=== PATIENT | male | born 1965 | race Caucasian/White ===

== ENCOUNTER 2024-06-26 09:53 | Outpatient (RCR) | payer OTHER, SELFPAY | END 2024-06-29 23:59 | disposition home or self-care (01) | LOC: SWHD 09:53 | PROVIDERS: PCP Registered Nurse; Referring Provider Registered Nurse; Visit Provider Student in an Organized Health Care Education/Training Program | DX: I96 Gangrene, not elsewhere classified (principal); E11.621 Type 2 diabetes mellitus with foot ulcer; L97.512 Non-pressure chronic ulcer of other part of right foot with fat layer exposed; E11.40 Type 2 diabetes mellitus with diabetic neuropathy, unspecified; Z79.84 Long term (current) use of oral hypoglycemic drugs; D64.9 Anemia, unspecified | CPT/HCPCS: 82962; 99213; A9270; G0277; G0463 ==

== ENCOUNTER → 2024-07-01 | Outpatient (CLI) | payer OTHER, SELFPAY | END | disposition home or self-care (01) | LOC: SLDO 12:15 | PROVIDERS: Referring Provider Student in an Organized Health Care Education/Training Program; Visit Provider Student in an Organized Health Care Education/Training Program | DX: E11.621 Type 2 diabetes mellitus with foot ulcer (principal); L97.515 Non-pressure chronic ulcer of other part of right foot with muscle involvement without evidence of necrosis | CPT/HCPCS: 87070; 87075; 87077; 87186; 87205 ==

== ENCOUNTER → 2024-07-17 | Outpatient (CLI) | payer OTHER, SELFPAY | END | disposition home or self-care (01) | LOC: SWHD 11:49 | PROVIDERS: PCP Registered Nurse; Referring Provider Registered Nurse; Visit Provider Student in an Organized Health Care Education/Training Program | DX: I96 Gangrene, not elsewhere classified (principal); E11.621 Type 2 diabetes mellitus with foot ulcer; L97.512 Non-pressure chronic ulcer of other part of right foot with fat layer exposed; E11.40 Type 2 diabetes mellitus with diabetic neuropathy, unspecified; Z79.84 Long term (current) use of oral hypoglycemic drugs; D64.9 Anemia, unspecified | CPT/HCPCS: 82962; A9270; G0277 ==

== ENCOUNTER → 2024-07-25 | Outpatient (CLI) | payer OTHER, SELFPAY | END | disposition home or self-care (01) | LOC: CDIM 11:57 | PROVIDERS: PCP Registered Nurse; Referring Provider Student in an Organized Health Care Education/Training Program; Visit Provider Student in an Organized Health Care Education/Training Program | DX: E11.621 Type 2 diabetes mellitus with foot ulcer (principal) ==

== ENCOUNTER 2024-07-30 08:43 | Outpatient (RCR) | payer OTHER, SELFPAY ==
--- NOTE | 2024-07-25 12:27 | XR_ITS ---
Examination: Foot, right, 3 views Technique: AP, oblique, lateral views foot, 3 views Date and time of exam: July 25, 2024 1252 hours Comparison May 21, 2024 INDICATIONS: Nonhealing ulcer lateral side of the foot 4 months FINDINGS: Prominent bone destruction distal fifth metatarsal and proximal phalanx fifth digit Severe osteopenia No fracture IMPRESSION: Prominent osteomyelitis distal fifth metatarsal and proximal phalanx fifth digit, consider MRI foot without contrast follow-up
== END 2024-07-30 23:59 | disposition home or self-care (01) ==
LOC: SWHD 08:43
PROVIDERS: PCP Registered Nurse; Referring Provider Registered Nurse; Visit Provider Student in an Organized Health Care Education/Training Program
DX: E11.621 Type 2 diabetes mellitus with foot ulcer (principal); L97.512 Non-pressure chronic ulcer of other part of right foot with fat layer exposed; E11.40 Type 2 diabetes mellitus with diabetic neuropathy, unspecified; Z79.84 Long term (current) use of oral hypoglycemic drugs; D64.9 Anemia, unspecified
CPT/HCPCS: 97597; 17250; 73630; 82962; 99213; A9270; G0277; G0463

== ENCOUNTER → 2024-07-30 | Outpatient (CLI) | payer OTHER, SELFPAY ==
[2024-07-30 13:08] LABS: Basophils # (Auto) 0.1 Thou/mm3 (0.0-0.2); Basophils % (Auto) 1 % (0-2.5); Eosinophils # (Auto) 0.5 Thou/mm3 (0.0-0.5); Eosinophils % (Auto) 9 % (0-10); Hematocrit 38.5 % (41.0-53.0); Immature Granulocytes % (Auto) 0 % (0-0); Immature Granulocytes Auto 0.02 Thou/mm3 (0.00-0.00); Lymphocytes # (Auto) 1.4 Thou/mm3 (1.0-4.8); Lymphocytes % (Auto) 24 % (10-50); Mean Corpuscular HGB Conc 33.8 g/dl (31.0-37.0); Mean Corpuscular Hemoglobin 31.9 pg (25.0-35.0); Mean Corpuscular Volume 94 fL (80-100); Monocytes # (Auto) 0.6 Thou/mm3 (0.0-0.8); Monocytes % (Auto) 10 % (0-12); Neutrophils # (Auto) 3.2 Thou/mm3 (1.8-7.7); Neutrophils % (Auto) 55 % (37-80); Nucleated Red Blood Cell % 0 /100 WBC (0); Platelet Count 221 Thou/mm3 (140-440); RDW Standard Deviation 44.4 fL (35.1-43.9); Red Blood Count 4.08 Miln/mm3 (4.50-5.90); White Blood Count 5.7 Thou/mm3 (3.8-10.6)
[2024-07-30 13:19] LABS: Glucose Estimated Average 120 mg/dL (80-131); Hemoglobin A1C 5.8 % Hgb (4.8-6.0)
[2024-07-30 13:20] LABS: Alanine Aminotransferase 27 U/L (10-49); Albumin, Serum 4.3 gm/dL (3.5-5.0); Albumin/Globulin Ratio 1.7 (1.2-2.2); Alkaline Phosphatase 68 U/L (46-116); Anion Gap 7 (7-16); Aspartate Amino Transferase 22 U/L (0-34); BUN/Creatinine Ratio 14 Ratio (12-20); Bilirubin,Total 0.5 mg/dL (0.3-1.2); Blood Urea Nitrogen 14 mg/dL (9-23); Calcium 9.6 mg/dL (8.3-10.6); Calcium (Corrected) 9.6 mg/dL (8.5-10.1); Chloride 101 mMol/L (98-107); Globulin 2.5 gm/dL (2.3-3.5); Glucose 128 mg/dL (74-106); Osmolality,Calculated 276 (275-295); Potassium 4.4 mMol/L (3.4-5.1); Sodium 137 mMol/L (136-145); Total Protein 6.8 gm/dL (5.7-8.2); eGFR > 60 See Note
== END | disposition home or self-care (01) ==
LOC: COPL 12:05
PROVIDERS: PCP Family Medicine; Referring Provider Registered Nurse; Visit Provider Registered Nurse
DX: E11.65 Type 2 diabetes mellitus with hyperglycemia (principal); D64.9 Anemia, unspecified
CPT/HCPCS: 36415; 80053; 83036; 85025

== ENCOUNTER 2024-08-14 10:41 | Inpatient (IN) | payer OTHER, SELFPAY ==
[2024-08-14] VITALS (7 sets, daily range): BP systolic 123–220; BP diastolic 68–93; PULSE 101–117; RESP 16–22; TEMP 36.6–37.1; O2SAT 99–100; BMI 25.8; BMI 25.9
--- NOTE | 2024-08-14 10:52 | XR_ITS ---
Examination: Foot, right, 3 views Technique: AP, oblique, lateral views foot, 3 views Date and time of exam: August 14, 2024 1101 hours INDICATIONS: Nonhealing wound right foot today FINDINGS: Gross bone destruction distal fifth metatarsal and almost the entire proximal phalanx fifth digit Clinical correlation distal third metatarsal No fracture IMPRESSION: Prominent osteomyelitis distal fifth metatarsal and proximal phalanx fifth digit Recommend MRI foot without contrast follow-up
--- NOTE | 2024-08-14 10:52 | PD.EDRME ---
Rapid Medical Screening Exam RME Arrival date/time: 08/14/24 10:41 59-year-old male presents emergency department today with infection of right foot patient reports being diabetic and followed at wound care since April Chief Complaint: Ankle/Foot Injury Vital signs: Vital Signs Temperature 98.1 F 08/14/24 10:50 Pulse Rate 117 H 08/14/24 10:50 Respiratory Rate 18 08/14/24 10:50 Blood Pressure 123/70 08/14/24 10:50 Pulse Oximetry (%) 100 08/14/24 10:50 Oxygen Delivery Method Room Air 08/14/24 10:50
[2024-08-14 11:50] LABS: Lactate (Lactic Acid) 1.1 mMol/L (0.4-2.0)
[2024-08-14 11:53] LABS: Basophils # (Auto) 0.1 Thou/mm3 (0.0-0.2); Basophils % (Auto) 1 % (0-2.5); Eosinophils # (Auto) 0.2 Thou/mm3 (0.0-0.5); Eosinophils % (Auto) 3 % (0-10); Hematocrit 37.7 % (41.0-53.0); Immature Granulocytes % (Auto) 0 % (0-0); Immature Granulocytes Auto 0.03 Thou/mm3 (0.00-0.00); Lymphocytes # (Auto) 1.1 Thou/mm3 (1.0-4.8); Lymphocytes % (Auto) 12 % (10-50); Mean Corpuscular HGB Conc 34.5 g/dl (31.0-37.0); Mean Corpuscular Hemoglobin 31.9 pg (25.0-35.0); Mean Corpuscular Volume 92 fL (80-100); Monocytes # (Auto) 1.1 Thou/mm3 (0.0-0.8); Monocytes % (Auto) 12 % (0-12); Neutrophils # (Auto) 6.6 Thou/mm3 (1.8-7.7); Neutrophils % (Auto) 72 % (37-80); Nucleated Red Blood Cell % 0 /100 WBC (0); Platelet Count 209 Thou/mm3 (140-440); RDW Standard Deviation 44.2 fL (35.1-43.9); Red Blood Count 4.08 Miln/mm3 (4.50-5.90); White Blood Count 9.2 Thou/mm3 (3.8-10.6)
[2024-08-14 12:05] LABS: Partial Thromboplastin Time 27.3 Seconds (22.0-36.0); Prothrombin Time 11.4 Seconds (9.0-12.2)
[2024-08-14 12:06] LABS: Sed Rate (ESR) 5 mm/hr (0-20)
[2024-08-14 12:16] LABS: Alanine Aminotransferase 47 U/L (10-49); Albumin, Serum 4.5 gm/dL (3.5-5.0); Albumin/Globulin Ratio 1.7 (1.2-2.2); Alkaline Phosphatase 58 U/L (46-116); Anion Gap 9 (7-16); Aspartate Amino Transferase 29 U/L (0-34); BUN/Creatinine Ratio 14 Ratio (12-20); Bilirubin,Total 0.8 mg/dL (0.3-1.2); Blood Urea Nitrogen 13 mg/dL (9-23); C-Reactive Protein 1.8 mg/dL (0.0-0.9); Calcium 9.6 mg/dL (8.3-10.6); Calcium (Corrected) 9.6 mg/dL (8.5-10.1); Carbon Dioxide 28.5 mMol/L (20.0-31.0); Chloride 98 mMol/L (98-107); Creatinine (Component) 0.9 mg/dL (0.6-1.3); Estimated Creatinine Clearance 93.5 mL/min (>60); Globulin 2.7 gm/dL (2.3-3.5); Glucose 127 mg/dL (74-106); Osmolality,Calculated 272 (275-295); Potassium 4.2 mMol/L (3.4-5.1); Procalcitonin 0.09 ng/ml (0.0-0.49); Sodium 135 mMol/L (136-145); Total Protein 7.2 gm/dL (5.7-8.2); eGFR > 60 See Note
--- NOTE | 2024-08-14 14:11 | EDNOTE_ITS ---
<Statement entered by Gardenia Hilliard MD - 08/14/24 16:17> As co-signing physician, I was present and available for consult prn. I concur with the plan and care as documented by the midlevel provider. Lower Extremity Injury RME/HPI General Chief Complaint: Ankle/Foot Injury Stated Complaint: RIGHT FOOT DIABETIC ULCER; WOUND CLINIC SENT Time Seen by Provider: 08/14/24 12:46 Arrival date/time: 08/14/24 10:41 RME / HPI RME / HPI Narrative: 59-year-old male presents emergency department today with infection of right foot patient reports being diabetic and followed at wound care since April. Patient noticed today that the chronic wound is getting worse, with redness and swelling, and puslike drainage. No fever noted. Was sent to us by wound care nurse. Currently taking Bactrim for 2 weeks now. Related Data Home Medications ?Medication ?Instructions ?Recorded ?Confirmed metformin 1,000 mg tablet 500 mg PO BID 11/16/22 06/13/23 metoprolol succinate 50 mg 50 mg PO QDAY 11/16/22 06/13/23 tablet,extended release 24 hr aspirin 81 mg tablet,delayed 81 mg PO QDAY 06/13/23 06/13/23 release gabapentin 300 mg capsule 300 mg PO BID 06/13/23 06/13/23 rosuvastatin 10 mg tablet 10 mg PO QDAY 06/13/23 06/13/23 semaglutide 1 mg/dose (4 mg/3 mL) 1 mg subcut QWEEK 06/13/23 06/13/23 subcutaneous pen injector (Ozempic) ticagrelor 90 mg tablet (Brilinta) 90 mg PO BID 06/13/23 06/13/23 Allergies Allergy/AdvReac Type Severity Reaction Status Date / Time codeine Allergy Mild Nausea Verified 08/14/24 10:42 Review of Systems Review of Systems Narrative Review of Systems: Review of system reviewed and within normal limits except mentioned in HPI ED Exam Narrative Physical exam: VITAL SIGNS: Reviewed. GENERAL APPEARANCE: Alert and interactive, follows commands, no acute distress, HEAD AND FACE: Non-traumatic. ENT: PERRL, pink conjunctivitis, eyelid no trauma, Mucous membrane moist. NECK: Supple, nontender, no nuchal rigidity. CHEST: No tenderness, no crepitus, no paradoxical movement, no retractions. LUNGS: Clear, well ventilated, symmetric, no rales, no wheezing, no ronchi, no stridor, good breath sounds bilaterally. HEART: Regular rate, regular rhythm, no murmur, no gallops. ABDOMEN: Soft, positive bowel sounds, nondistended, no guarding, nontender, no rebound, no masses, RECTAL: Deferred. GENITAL: Deferred. NEUROLOGICAL: Gross motor function intact sensory function intact, Appropriate for age. MUSCULOSKELETAL: low back nontender, full range of motion. EXTREMITIES: + Chronic wound right lateral/plantar foot with puslike drainage, redness noted also the dorsum of the foot, nontender, full range of motion. Dorsalis pedis and posterior tibialis pulses +2 SKIN: Color pink, dry, no rash, no lacerations, no abrasions, no contusions. LYMPHATICS: Deferred. Course Quality Measures none Orders Category Date Time Status COVID-19 Screening Questionnaire NOW Care 08/14/24 15:11 Active Decision to Admit X1 Care 08/14/24 15:11 Active Consult to General Surgery Stat Cons 08/14/24 15:04 Ordered XR foot comp RT min 3V Stat Exams 08/14/24 10:52 Completed Blood Culture (Lab) Stat Lab 08/14/24 11:36 Received CBC Stat Lab 08/14/24 11:36 Completed CMP [Comprehensive Metabolic Panel] Stat Lab 08/14/24 11:36 Completed CRP [C-Reactive Protein] Stat Lab 08/14/24 11:36 Completed ESR [Sed Rate (ESR)] Stat Lab 08/14/24 11:36 Completed Lactic Acid [Lactate (Lactic Acid)] Stat Lab 08/14/24 11:36 Completed PT [Prothrombin Time with INR] Stat Lab 08/14/24 11:36 Completed PTT [Partial Thromboplastin Time] Stat Lab 08/14/24 11:36 Completed Procalcitonin Stat Lab 08/14/24 11:36 Completed Piper/Tazo 3.375 gm [Zosyn] Med 08/14/24 14:11 Discontinued 3.375 gm in 50 ml IV X1 Vancomycin Inj 1,000 mg Med 08/14/24 14:32 Active Sodium Chloride 0.9% 250 ml [Ns] 250 ml IV X1 Vital Signs Vital signs: Vital Signs Temperature 98.1 F 08/14/24 10:50 Pulse Rate 117 H 08/14/24 10:50 Respiratory Rate 18 08/14/24 10:50 Blood Pressure 123/70 08/14/24 10:50 Pulse Oximetry (%) 100 08/14/24 10:50 Oxygen Delivery Method Room Air 08/14/24 10:50 Extremity Injury, Lower MDM Narrative MDM Narrative:: 59-year-old male presents emergency department today with infection of right foot patient reports being diabetic and followed at wound care since April. Patient noticed today that the chronic wound is getting worse, with redness and swelling, and puslike drainage. No fever noted. Was sent to us by wound care nurse. Currently taking Bactrim for 2 weeks now. Laboratory workup came back unremarkable except for slightly elevated CRP. X- ray of the foot showed osteomyelitis fifth metatarsal and proximal phalanx of the fifth toe. Patient received IV vancomycin and IV Zosyn. I spoke with Dr Beck, general surgeon on-call, discussed the case, and thank you Dr. Chaney Plan of care discussed with the patient and agrees to be admitted for further management. Patient data External records reviewed:: None Clinical information provided by:: patient Social determinants that could affect healthcare access:: none Patient has the following chronic illnesses:: Diabetes mellitus How is presenting disease/condition affected by chronic disease/condition?: exacerbated by Evaluation data The following diagnostics were reviewed and interpreted by me:: lab results and radiology exam(s) Lab and/or radiology exams considered but not ordered:: None Interpretation Summary: Laboratory workup came back unremarkable except for slightly elevated CRP. X- ray of the foot showed osteomyelitis fifth metatarsal and proximal phalanx of the fifth toe. Medications / Prescriptions Medications or Prescriptions considered but not ordered:: None Medication administrations:: Medication Administration History Vancomycin HCl 1,000 mg/ (Sodium Chloride) 250 mls @ 150 mls/hr IV X1 ONE Stop: 08/14/24 16:11 Discontinued Medications Piperacillin/Tazobactam/Dextrose (Zosyn) 3.375 gm in 50 mls @ 100 mls/hr IV X1 ONE Stop: 08/14/24 14:40 Vancomycin, Zosyn Consultations Consultation(s) initiated? (list below): Yes Consultation #1 (Physician, Specialty, Details): Spoke with Dr. Chaney, general surgeon on-call, thank you Dr. Chaney Diagnosis Extremity Injury, Lower Differential Diagnosis: other (Diabetic foot infection, diabetic foot gangrene osteomyelitis metatarsal) Most likely diagnosis given after review of the tests above:: Diabetic foot infection, osteomyelitis metatarsal Admission Indicated Admission indicated?: indicated Explain why admission is indicated or not indicated:: For IV antibiotic and further management Admission Request Was there a request for admission?: Yes Admission Attestation Admission request attestation: Discussed case with [ Dr Walters] from Hospitalist service regarding admission. Discussed patients ED course, exam findings, labs, and radiology results. The Hospitalist [agrees] to accept the patient for admission. Disposition Plan Disposition Plan: Admit Discharge Plan Plan Patient Disposition: Admit Acute Care w/in Hospital Disposition Comment: Stable Prescriptions/Referrals Prescriptions/Med Rec: No Action metoprolol succinate 50 mg Tablet Extended Release 24 Hr 50 mg PO QDAY metformin 1,000 mg Tablet 500 mg PO BID Hold Instructions: Resume on 11/18/22. MAY RESUME ON MONDAY aspirin 81 mg Tablet,Delayed Release (Dr/Ec) 81 mg PO QDAY gabapentin 300 mg Capsule 300 mg PO BID rosuvastatin 10 mg Tablet 10 mg PO QDAY Brilinta 90 mg Tablet 90 mg PO BID Ozempic 1 mg/dose (4 mg/3 mL) Pen Injector 1 mg SUBCUT QWEEK Hold Instructions: Resume on 06/16/23. Referrals: Farnaz Heck NP [Primary Care Provider] - In 1 week Problem List Clinical Impression: Diabetic foot infection, Foot osteomyelitis Patient/Caregiver Discharge Instructions Discharge Activity: activity as tolerated Print Language: French Stand Alone Forms: Shireen Award Info., Patient Portal Info Letter
--- NOTE | 2024-08-14 15:21 | XR_ITS ---
Examination: Arterial duplex lower extremity study. Date and time of exam: August 14, 2024 at 1550 hours INDICATIONS: Right foot ulcer nonhealing beginning February 2024 Findings: Duplex sonographic imaging of the lower extremity arteries using B-mode/Kurtz scale imaging and Doppler spectral analysis and color flow. Ankle brachial indices have been recorded. Right common femoral artery demonstrates triphasic flow. Right superficial femoral artery demonstrates triphasic flow. Right popliteal artery demonstrates triphasic flow. Right posterior tibial artery demonstrated triphasic flow. Right dorsalis pedis artery flow monophasic Right ankle/brachial index is 1.1. Left common femoral artery demonstrates triphasic flow. Left superficial femoral artery demonstrates triphasic flow. Left popliteal artery demonstrates triphasic flow. Left posterior tibial artery demonstrated triphasic flow. Left ankle/brachial index is 1.2. Impression: Suspicious for obstructive arterial disease in the trifurcation arteries below the knee on the right, consider correlation with CTA abdominal aorta iliofemoral runoff post intravenous contrast
--- NOTE | 2024-08-14 15:57 | PD.RESHP ---
Documentation for date of: 08/14/24 [facility] History of Present Illness Chief complaint: Fever and chills with foot pain History of present illness: Mr. Mullen is a 59-year-old male with past medical history of type 2 diabetes (A1c 5.8), essential tremor on gabapentin, CAD status post stent October 2022 on Brilinta and aspirin and metoprolol, who presented to [facility] [place] with a chief complaint of fever and chills following for pain. Patient is followed at the wound care center and developed a wound on his right lower extremity in February that he has been following with the wound care center for. Initially patient's wound grew strep and later MRSA and he states that the wound takes 2 steps forward and 1 step back. He says that he was sent here by his wound care nurse after seeing the wound today. He states that last night he had significant amount of fever and chills along with mild pain in the lower right lower extremity. He says that this morning he noted linh pus draining from the wound site. He denies any other associated symptoms including chest pain, nausea, vomiting, diarrhea, dysuria, or any other associated symptoms. PMH: CAD status post stents, type 2 diabetes, essential tremor, hyperlipidemia Past surgical history: Hernia repair last year with Dr. Chaney, stenting in October 2022, venous stripping, previous eye surgery and nasal surgery. Family history: Father likely from liver disease, mother is alive with no relevant history Social: Patient denies any alcohol or tobacco use, retired army officer, able to perform ADLs Allergies: Codeine leading to rash and itchiness ED vitals: BP 152/88, pulse 114, RR 18, temp afebrile, O2 sat 100 on room air ED labs: WBC 9.2, hemoglobin 13.0, sodium 135, glucose 127, lactic acid 1.1, C-reactive protein 1.8 ED imaging:Foot x-ray reveals prominent osteomyelitis in the distal fifth metatarsal and proximal phalanx of the fifth digit ED management: General Surgery consult, Vanco mycin x 1, Zosyn x 1 Exam Vital Signs Temp Pulse Resp BP Pulse Ox O2 Del Method 98.0 F 114 H 18 152/88 H 100 Room Air 08/14/24 15:25 08/14/24 15:25 08/14/24 15:25 08/14/24 15:25 08/14/24 15:25 08/14/24 15:25 Narrative Exam GENERAL: Alert and oriented x 3. No acute distress. Well-nourished. EYES: EOMI. Anicteric. HEENT: Moist mucous membranes. No scleral icterus. No cervical lymphadenopathy. LUNGS: Clear to auscultation bilaterally. No accessory muscle use. CARDIOVASCULAR: Regular rate and rhythm. No murmur. No JVD. ABDOMEN: Soft, non-tender and non-distended. No palpable masses. EXTREMITIES: All 4 extremeties intact. No edema. Right lower extremity at the base of the foot has a 3 x 3 cm circumferential wound draining lihn pus. Redness noted on the dorsum of the foot extending from the fifth toe down. Distal pulses intact SKIN: No rashes or lesions. Warm. NEUROLOGIC: No focal neurological deficits. CN II-XII grossly intact, but not individually tested. PSYCHIATRIC: Cooperative. Appropriate mood and affect. Results: Labs 08/15/24 05:55 08/15/24 05:55 Labs: Short CBC 08/14/24 Range/Units 11:36 WBC 9.2 (3.8-10.6) Thou/mm3 Hgb 13.0 L (13.5-16.0) g/dL Hct 37.7 L (41.0-53.0) % Plt Count 209 (140-440) Thou/mm3 BMP 08/14/24 11:36 Sodium 135 L Potassium 4.2 Chloride 98 Carbon Dioxide 28.5 BUN 13 Creatinine 0.9 Glucose 127 H Calcium 9.6 Liver Function 08/14/24 Range/Units 11:36 Total Bilirubin 0.8 (0.3-1.2) mg/dL AST 29 (0-34) U/L ALT 47 (10-49) U/L Alkaline Phosphatase 58 (46-116) U/L Albumin 4.5 (3.5-5.0) gm/dL Quality Measures Quality Measures none Medications Home Medications and Allergies Home Medications ?Medication ?Instructions ?Recorded ?Confirmed ?Type metformin 1,000 mg tablet 500 mg PO BID 11/16/22 08/15/24 History metoprolol succinate 50 mg 50 mg PO QDAY 11/16/22 08/15/24 History tablet,extended release 24 hr aspirin 81 mg tablet,delayed 81 mg PO QDAY 06/13/23 08/15/24 History release gabapentin 300 mg capsule 300 mg PO BID 06/13/23 08/15/24 History rosuvastatin 10 mg tablet 10 mg PO QDAY 06/13/23 08/15/24 History semaglutide 1 mg/dose (4 mg/3 mL) 1 mg subcut QWEEK 06/13/23 08/15/24 History subcutaneous pen injector (Ozempic) Allergies Allergy/AdvReac Type Severity Reaction Status Date / Time codeine Allergy Mild Nausea Verified 08/14/24 10:42 Visit Medications Acetaminophen (Acetaminophen 325 Mg Tablet) 650 mg PO Q6H PRN PRN Reason: Fever >101.5 Stop: 09/13/24 15:48 Acetaminophen (Acetaminophen 325 Mg Tablet) 650 mg PO Q6H PRN PRN Reason: PAIN SCALE 1-3 (mild Stop: 09/13/24 15:48 Hydrocodone Bitart/Acetaminophen (Hydrocodone/Apap 5/325 Tablet) 1 tab PO Q4HR PRN PRN Reason: PAIN SCALE 4-6 (Moderate Stop: 08/19/24 15:48 Hydrocodone Bitart/Acetaminophen (Hydrocodone/Apap 10/325 Tab) 1 tab PO Q4HR PRN PRN Reason: PAIN SCALE 7-10 (Severe Stop: 08/19/24 15:48 Aspirin (Aspirin Ec 81 Mg Tabec) 81 mg PO QDAY COUNTS INCLUDE 234 BEDS AT THE [facility] Stop: 09/14/24 08:59 Dextrose (Dextrose 50%-Water Inj 50 Ml Syringe) 25 ml IV Q15MIN PRN PRN Reason: BG 50-70 responsive npo pt Stop: 09/13/24 15:48 Dextrose (Dextrose 50%-Water Inj 50 Ml Syringe) 50 ml IV Q15MIN PRN PRN Reason: BG <50 OR BG <70 & pt unresponsive Stop: 09/13/24 15:48 Docusate Sodium (Docusate Sod 100 Mg Capsule) 100 mg PO QDAY COUNTS INCLUDE 234 BEDS AT THE [facility]; Protocol Stop: 09/14/24 08:59 Gabapentin (Gabapentin 300 Mg Capsule) 300 mg PO BID COUNTS INCLUDE 234 BEDS AT THE [facility] Stop: 09/13/24 20:59 Glucagon (Glucagon Inj 1 Mg Vial) 1 mg IM Q15MIN PRN PRN Reason: BG <70, and no IV access Heparin Sodium (Porcine) (Heparin Sod Inj 5000 Unit/Ml Vial) 5,000 unit SC Q8HR COUNTS INCLUDE 234 BEDS AT THE [facility] Stop: 08/28/24 21:59 Vancomycin HCl 1,000 mg/ (Sodium Chloride) 250 mls @ 150 mls/hr IV X1 ONE Stop: 08/14/24 16:11 Lactated Ringer's (Lactated Ringers) 1,000 mls @ 125 mls/hr IV .Q8H COUNTS INCLUDE 234 BEDS AT THE [facility] Stop: 09/13/24 15:59 Piperacillin/Tazobactam/Dextrose (Zosyn) 3.375 gm in 50 mls @ 100 mls/hr IV Q8HR COUNTS INCLUDE 234 BEDS AT THE [facility] Stop: 08/21/24 15:52 Insulin Human Lispro (Insulin Lispro (Admelog) 1 Unit/0.01 Ml Unit) 0 unit SC AC CARMEN; Protocol Stop: 09/13/24 16:59 Metoprolol Succinate (Metoprolol Succinate Xl 25 Mg Tabcr) 50 mg PO QDAY COUNTS INCLUDE 234 BEDS AT THE [facility] Stop: 09/14/24 08:59 Ondansetron HCl (Ondansetron Inj 2 Mg/Ml Inj 2 Ml) 4 mg IV Q6H PRN; Protocol PRN Reason: NAUSEA OR VOMITING Stop: 09/13/24 15:48 Pharmacy Consult (Vancomycin Pharmacy To Dose 1 Each Each) 1 each IV QDAY COUNTS INCLUDE 234 BEDS AT THE [facility] Stop: 09/14/24 08:59 Sennosides (Senna Tablet) 1 tab PO QDAY COUNTS INCLUDE 234 BEDS AT THE [facility]; Protocol Stop: 09/14/24 08:59 Discontinued Medications Piperacillin/Tazobactam/Dextrose (Zosyn) 3.375 gm in 50 mls @ 100 mls/hr IV X1 ONE Stop: 08/14/24 14:40 Assessment & Plan Plan Mr. Mullen is a 59-year-old male with past medical history of type 2 diabetes (A1c 5.8), essential tremor on gabapentin, CAD status post stent October 2022 on Brilinta and aspirin and metoprolol, who presented to [facility] [place] with a chief complaint of fever and chills following for pain. Patient is followed at the wound care center and developed a wound on his right lower extremity in February that he has been following with the wound care center for. Initially patient's wound grew strep and later MRSA and he states that the wound takes 2 steps forward and 1 step back. He says that he was sent here by his wound care nurse after seeing the wound today. He states that last night he had significant amount of fever and chills along with mild pain in the lower right lower extremity. He says that this morning he noted linh pus draining from the wound site. He denies any other associated symptoms including chest pain, nausea, vomiting, diarrhea, dysuria, or any other associated symptoms. #Osteomyelitis #Diabetic foot Patient has been following with wound care since February for a foot wound on the right lower extremity Foot x-ray reveals fifth metatarsal osteomyelitis General surgery consult ordered, Dr. Chaney will give recommendations Wound culture ordered Wound care ordered Vancomycin and Zosyn Blood cultures pending Light IV fluid resuscitation ID consultation ordered Will consider PICC line once blood cultures are negative PT evaluation ordered #CAD status post stents (October 2022) Holding Brilinta for potential surgical intervention Continue aspirin 81 mg p.o. daily Continue with statin #Essential tremor Continue gabapentin 300 mg p.o. twice daily Health Maintenance: DVT prophylaxis: Heparin 5000 IU every 8 hourly GI prophylaxis: Not indicated Diet: Carb consistent low Andre: Not indicated Lines: Peripheral IV Supplemental O2: None CODE STATUS: Full code Disposition: Admitted to med/tele for the management of osteomyelitis Plan of care discussed with supervising attending Dr. Kassidy Vázquez M.D. PGY-3 Attending Provider Attestation/Addendum [place], Doar Yi DO, attest that I was physically present for the carballo portions of the service and evaluated the patient with the resident and I reviewed and discussed the case with the resident and agree with the resident's findings and plans of care as documented above Patient is a 59-year-old male with past medical history of type 2 diabetes, essential tremor, CAD status post stent who presented to the ED after he was seen at the wound care clinic and told to come to the the ER instead. Patient states that the wound on his right lateral foot BTM in February as a blister. He does not recall any trauma to his feet. He states that it became complicated in April requiring frequent visits to the wound care clinic. Patient had been seen at the clinic yesterday during which the wound was debrided and cleaned, but patient woke up with purulent drainage around his dressing this morning which prompted his return to the clinic and referral to ER. Patient states that he noted to get some chills and denied any fevers. He states that he takes metformin and Ozempic for his diabetes which has been well-controlled with a last A1c of 5.8 reportedly. Patient has been on multiple different regimens of antibiotics, last being Bactrim 2 weeks ago without any resolution of his infection. X-ray of the foot shows prominent osteomyelitis of the distal metatarsal and proximal phalanx fifth digit. Patient states that he has seen vascular surgery in the past and denies any history of PAD. Surgeon was called from ED and recommends amputation fifth digit and head of metatarsal. Will admit patient for osteomyelitis and IV antibiotics on med/tele. Will obtain blood cultures to rule in/out hematogenous spread of osteomyelitis. Will start with broad-spectrum antibiotics and obtain ID consult for further recommendations of narrowing antibiotic coverage. Will continue with wound care at this time. Will also obtain an ultrasound arterial to rule in/out PAD as patient has a history of CAD.
[2024-08-14 16:28] LABS: Glucose Estimated Average 120 mg/dL (80-131); Hemoglobin A1C 5.8 % Hgb (4.8-6.0)
--- NOTE | 2024-08-14 16:40 | PD.SURCONS ---
HPI Consult details Consult date: 08/14/24 Reason for consultation narrative: The patient is seen in consultation because of the cellulitis over the right foot with purulent drainage from the lateral aspect of the fifth toe associated with osteomyelitis of the toe History of present illness: History of present illness revealed that the patient has been followed at wound care and this problem started last year and has been on antibiotic Meds Home Medications and Allergies Home Medications ?Medication ?Instructions ?Recorded ?Confirmed ?Type metformin 1,000 mg tablet 500 mg PO BID 11/16/22 06/13/23 History metoprolol succinate 50 mg 50 mg PO QDAY 11/16/22 06/13/23 History tablet,extended release 24 hr aspirin 81 mg tablet,delayed 81 mg PO QDAY 06/13/23 06/13/23 History release gabapentin 300 mg capsule 300 mg PO BID 06/13/23 06/13/23 History rosuvastatin 10 mg tablet 10 mg PO QDAY 06/13/23 06/13/23 History semaglutide 1 mg/dose (4 mg/3 mL) 1 mg subcut QWEEK 06/13/23 06/13/23 History subcutaneous pen injector (Ozempic) ticagrelor 90 mg tablet (Brilinta) 90 mg PO BID 06/13/23 06/13/23 History Allergies Allergy/AdvReac Type Severity Reaction Status Date / Time codeine Allergy Mild Nausea Verified 08/14/24 10:42 Exam Vital Signs Temp Pulse Resp BP Pulse Ox O2 Del Method 98.0 F 114 H 18 152/88 H 100 Room Air 08/14/24 15:25 08/14/24 15:25 08/14/24 15:25 08/14/24 15:25 08/14/24 15:25 08/14/24 15:25 Narrative Exam Examination reveals 59-year-old white male with sinus tachycardia Routine Extremities Exam Comments: The right foot revealed cellulitis with some drainage of blood from the right fifth toe. There is considerable amount of cellulitis over the lateral half of the right foot Results Results: Laboratory Laboratory Narrative: Patient's WBC is within normal limits Results: Imaging Imaging narrative: X-ray of the right foot showed destruction of the bone at the distal fifth metatarsal as well as the proximal phalanx of the fifth toe Assessment & Plan Additional Assessment Additional comments: Impression: Chronic foot infection with osteomyelitis Plan Plan: Patient will require amputation of the fifth toe after antibiotic therapy. I will follow the patient
[2024-08-14] MEDS: PIPER/TAZO 3.375 GM 3.375 GM/50 ML BAG IV ×2 (17:47→21:35)
[2024-08-14] MEDS: RINGERS LACTATED 1000 ML 1,000 ML 125 ML IV (17:48)
--- NOTE | 2024-08-14 18:00 | PC.NURSE ---
admit doctor at bedside.
--- NOTE | 2024-08-14 19:22 | PC.NURSE ---
report called to [facility] tra[facility] for bed 314, nurse will resume care for pt.
[2024-08-14] MEDS: Vancomycin Inj 2,000 MG in SODIUM CHLORIDE 0.9% 500 ML 500 ML 150 MG IV (20:52)
[2024-08-14] MEDS: GABAPENTIN 300 MG CAPSULE PO (21:02)
[2024-08-14] MEDS: ATORVASTATIN CALCIUM 10 MG TABLET PO (21:02)
[2024-08-15] VITALS (9 sets, daily range): BP systolic 124–148; BP diastolic 71–87; PULSE 84–102; RESP 12–17; TEMP 36.6–37; O2SAT 97–99
[2024-08-15] MEDS: PIPER/TAZO 3.375 GM 3.375 GM/50 ML BAG IV ×3 (05:07→21:54)
[2024-08-15] MEDS: RINGERS LACTATED 1000 ML 1,000 ML 125 ML IV ×3 (05:55→21:22)
[2024-08-15 06:40] LABS: INR 1.1 (0.9-1.3); Prothrombin Time 11.6 Seconds (9.0-12.2)
[2024-08-15 06:42] LABS: Basophils # (Auto) 0.1 Thou/mm3 (0.0-0.2); Basophils % (Auto) 1 % (0-2.5); Eosinophils # (Auto) 0.3 Thou/mm3 (0.0-0.5); Eosinophils % (Auto) 6 % (0-10); Hematocrit 33.9 % (41.0-53.0); Hemoglobin 11.6 g/dL (13.5-16.0); Immature Granulocytes % (Auto) 0 % (0-0); Immature Granulocytes Auto 0.02 Thou/mm3 (0.00-0.00); Lymphocytes # (Auto) 0.8 Thou/mm3 (1.0-4.8); Lymphocytes % (Auto) 15 % (10-50); Mean Corpuscular HGB Conc 34.2 g/dl (31.0-37.0); Mean Corpuscular Volume 94 fL (80-100); Monocytes # (Auto) 0.8 Thou/mm3 (0.0-0.8); Monocytes % (Auto) 15 % (0-12); Neutrophils # (Auto) 3.5 Thou/mm3 (1.8-7.7); Neutrophils % (Auto) 63 % (37-80); Nucleated Red Blood Cell % 0 /100 WBC (0); Platelet Count 163 Thou/mm3 (140-440); RDW Standard Deviation 44.6 fL (35.1-43.9); Red Blood Count 3.62 Miln/mm3 (4.50-5.90); White Blood Count 5.6 Thou/mm3 (3.8-10.6)
[2024-08-15 07:02] LABS: Alanine Aminotransferase 35 U/L (10-49); Albumin/Globulin Ratio 1.7 (1.2-2.2); Alkaline Phosphatase 47 U/L (46-116); Anion Gap 7 (7-16); Aspartate Amino Transferase 21 U/L (0-34); BUN/Creatinine Ratio 17 Ratio (12-20); Bilirubin,Total 0.8 mg/dL (0.3-1.2); Blood Urea Nitrogen 12 mg/dL (9-23); Calcium 9.2 mg/dL (8.3-10.6); Calcium (Corrected) 9.2 mg/dL (8.5-10.1); Carbon Dioxide 28.3 mMol/L (20.0-31.0); Chloride 99 mMol/L (98-107); Creatinine (Component) 0.7 mg/dL (0.6-1.3); Estimated Creatinine Clearance 120.2 mL/min (>60); Globulin 2.4 gm/dL (2.3-3.5); Glucose 115 mg/dL (74-106); Magnesium 1.5 mg/dL (1.6-2.6); Osmolality,Calculated 268 (275-295); Phosphorous 3.6 mg/dL (2.4-5.1); Potassium 3.9 mMol/L (3.4-5.1); Sodium 134 mMol/L (136-145); Total Protein 6.4 gm/dL (5.7-8.2); eGFR > 60 See Note
[2024-08-15] MEDS: METOPROLOL SUCCINATE XL 25 MG TABCR 50 MG PO (08:10)
[2024-08-15] MEDS: ASPIRIN EC 81 MG TABEC PO (08:10)
[2024-08-15] MEDS: DOCUSATE SOD 100 MG CAPSULE PO (08:10)
[2024-08-15] MEDS: SENNA TABLET 1 TAB PO (08:10)
[2024-08-15] MEDS: GABAPENTIN 300 MG CAPSULE PO ×2 (08:10→20:23)
[2024-08-15] MEDS: Magnesium Sulfate 2 GM Ivpb 2 GM/50 ML BAG IV ×2 (08:55→12:14)
[2024-08-15] MEDS: VANCOMYCIN/NS 1 GM IVPB 200 ML IV ×2 (10:34→22:24)
[2024-08-15] MEDS: HEPARIN SOD INJ 5000 UNIT/ML VIAL SC (13:57)
--- NOTE | 2024-08-15 14:21 | PC.NURSE ---
right foot wound cleanse with normal saline and cover with kerlix
--- NOTE | 2024-08-15 16:41 | PD.RESPRO ---
Documentation for date of: 08/15/24 Senior resident attestation: Patient evaluated and examined at the bedside, plan of care discussed with rest of the team including my attending physician, except as noted. #Osteomyelitis of fifth metatarsal, general surgery following the patient, plan for amputation of following antibiotics for improvement of cellulitis of the surrounding skin. Continue vancomycin and Zosyn. #Coronary artery disease s/p stents?continue aspirin, metoprolol succinate #Essential tremors?continue gabapentin #Diabetes mellitus?sliding scale insulin Quresh PGY2 Subjective Subjective Interval history: 08/15: No acute overnight events patient seen and examined at bedside this morning patient expressed that he is nervous to undergo amputation because he thinks he will lose his job since he will not be able to return to work. Patient states that his pain in the right foot is somewhat better than when he initially presented. Patient has no other complaints patient is explained per Dr. Chaney's recommendation on it is likely that his right fifth toe will be amputated. CBC and CMP is unremarkable, patient has no other complaints. Exam Vital Signs Temp Pulse Resp BP Pulse Ox O2 Del Method 98.2 F 84 14 124/76 99 Room Air 08/15/24 16:00 08/15/24 16:12 08/15/24 16:00 08/15/24 16:00 08/15/24 16:00 08/15/24 16:00 Narrative Exam GENERAL: A&Ox3 . Awake, Not in acute distress NEURO: no focal neurological deficits HEENT: Atraumatic, Normocephalic. mucous membranes moist. Eyes open, symmetrical, & clear HEART: Normal Heart Sounds LUNGS: Clear to auscultation with no wheezing or crackles. ABDOMEN: soft, non-distended, non-tender, bowel sounds heard, no guarding or rebound tenderness SKIN: No Rash or ecchymoses EXTREMITIES: No edema, tenderness, able to move all 4 extremities, pedal pulses palpated, wound care has a bandage wrapped over the right foot Objective Labs 08/16/24 04:55 08/16/24 04:55 Labs: Laboratory Results - last 24 hr 08/15/24 05:55 WBC 5.6 RBC 3.62 L Hgb 11.6 L Hct 33.9 L MCV 94 MCH 32.0 MCHC 34.2 RDW Std Deviation 44.6 H Plt Count 163 D Neut % (Auto) 63 Lymph % (Auto) 15 [place] % (Auto) 15 H Eos % (Auto) 6 Baso % (Auto) 1 Neut # (Auto) 3.5 Lymph # (Auto) 0.8 L [place] # (Auto) 0.8 Eos # (Auto) 0.3 Baso # (Auto) 0.1 Immature Gran # (Auto) 0.02 H Absolute Nucleated RBC 0.00 Immature Gran % 0 Nucleated RBC % 0 PT 11.6 INR 1.1 Sodium 134 L Potassium 3.9 Chloride 99 Carbon Dioxide 28.3 Anion Gap 7 BUN 12 Creatinine 0.7 Estim Creat Clear Calc 120.2 eGFR > 60 BUN/Creatinine Ratio 17 Glucose 115 H Calculated Osmolality 268 L Calcium 9.2 Corrected Calcium 9.2 Phosphorus 3.6 Magnesium 1.5 L Total Bilirubin 0.8 AST 21 ALT 35 Alkaline Phosphatase 47 Total Protein 6.4 Albumin 4.0 D Globulin 2.4 Albumin/Globulin Ratio 1.7 Quality Measures Quality Measures none Assessment & Plan Assessment Current Active Medications: Generic Name Dose Route Start Last Admin Trade Name Freq PRN Reason Stop Dose Admin Acetaminophen 650 mg 08/14/24 15:49 Acetaminophen 325 Mg Tablet PO 09/13/24 15:48 Q6H PRN Fever >101.5 Acetaminophen 650 mg 08/14/24 15:49 Acetaminophen 325 Mg Tablet PO 09/13/24 15:48 Q6H PRN PAIN SCALE 1-3 (mild Hydrocodone Bitart/Acetaminophen 1 tab 08/14/24 15:49 Hydrocodone/Apap 5/325 Tablet PO 08/19/24 15:48 Q4HR PRN PAIN SCALE 4-6 (Moderate Hydrocodone Bitart/Acetaminophen 1 tab 08/14/24 15:49 Hydrocodone/Apap 10/325 Tab PO 08/19/24 15:48 Q4HR PRN PAIN SCALE 7-10 (Severe Aspirin 81 mg 08/15/24 09:00 08/15/24 08:10 Aspirin Ec 81 Mg Tabec PO 09/14/24 08:59 81 mg QDAY CARMEN Administration Atorvastatin Calcium 10 mg 08/14/24 21:00 08/14/24 21:02 Atorvastatin Calcium 10 Mg Tablet PO 09/13/24 20:59 10 mg HS CARMEN Administration Dextrose 25 ml 08/14/24 15:49 Dextrose 50%-Water Inj 50 Ml Syringe IV 09/13/24 15:48 Q15MIN PRN BG 50-70 responsive npo pt Dextrose 50 ml 08/14/24 15:49 Dextrose 50%-Water Inj 50 Ml Syringe IV 09/13/24 15:48 Q15MIN PRN BG <50 OR BG <70 & pt unresponsive Docusate Sodium 100 mg 08/15/24 09:00 08/15/24 08:10 Docusate Sod 100 Mg Capsule PO 09/14/24 08:59 100 mg QDAY CARMEN Administration Protocol Gabapentin 300 mg 08/14/24 21:00 08/15/24 08:10 Gabapentin 300 Mg Capsule PO 09/13/24 20:59 300 mg BID CARMEN Administration Glucagon 1 mg 08/14/24 15:49 Glucagon Inj 1 Mg Vial IM Q15MIN PRN BG <70, and no IV access Heparin Sodium (Porcine) 5,000 unit 08/14/24 22:00 08/15/24 13:57 Heparin Sod Inj 5000 Unit/Ml Vial SC 08/28/24 21:59 5,000 unit Q8HR CARMEN Administration Lactated Ringer's 1,000 mls @ 125 mls/hr 08/14/24 16:00 08/15/24 12:14 Lactated Ringers IV 09/13/24 15:59 125 mls/hr .Q8H CARMEN Administration Piperacillin/Tazobactam/Dextrose 3.375 gm in 50 mls @ 12.5 mls/hr 08/14/24 22:00 08/15/24 13:58 Zosyn IV 08/21/24 21:59 12.5 mls/hr Q8HR CARMEN Administration Vancomycin/Sodium Chloride 200 mls @ 120 mls/hr 08/15/24 10:00 08/15/24 10:34 Vancomycin/Ns 1 Gm Ivpb IV 08/22/24 09:59 120 mls/hr Q12H CARMEN Administration Insulin Human Lispro 0 unit 08/14/24 17:00 08/15/24 12:07 Insulin Lispro (Admelog) 1 Unit/0.01 Ml Unit SC 09/13/24 16:59 Not Given AC CARMEN Protocol Metoprolol Succinate 50 mg 08/15/24 09:00 08/15/24 08:10 Metoprolol Succinate Xl 25 Mg Tabcr PO 02/15/25 08:59 50 mg QDAY CARMEN Administration Ondansetron HCl 4 mg 08/14/24 15:49 Ondansetron Inj 2 Mg/Ml Inj 2 Ml IV 09/13/24 15:48 Q6H PRN NAUSEA OR VOMITING Protocol Pharmacy Consult 1 each 08/15/24 09:00 Vancomycin Pharmacy To Dose 1 Each Each IV 09/14/24 08:59 QDAY PRN CONSULT Sennosides 1 tab 08/15/24 09:00 08/15/24 08:10 Senna Tablet PO 09/14/24 08:59 1 tab QDAY CARMEN Administration Protocol Plan Mr. Mullen is a 59-year-old male with past medical history of type 2 diabetes (A1c 5.8), essential tremor on gabapentin, CAD status post stent October 2022 on Brilinta and aspirin and metoprolol, who presented to [facility] with a chief complaint of fever and chills following several weeks of right foot pain. Patient is followed at the wound care center after developing a blister on his right foot in February which was later complicated in april that he has been following with the wound care center since April without improvement. Pt is admited to the hospital for further management of osteomylitis of his right foot. #Osteomyelitis #Diabetic foot Patient has been following with wound care since april for a foot wound on the right lower extremity Foot x-ray reveals fifth metatarsal osteomyelitis General surgery consult ordered, Dr. Chaney recommends amputation after antibiotics Wound culture ordered Wound care ordered Vancomycin and Zosyn Blood cultures no growth after 24 hours Light IV fluid resuscitation ID consultation ordered Will consider PICC line once blood cultures are negative PT evaluation ordered #CAD status post stents (October 2022) Holding Brilinta for potential surgical intervention Continue aspirin 81 mg p.o. daily Continue with statin #Essential tremor Continue gabapentin 300 mg p.o. twice daily Health Maintenance: DVT prophylaxis: Heparin 5000 IU every 8 hourly GI prophylaxis: Not indicated Diet: Carb consistent low Andre: Not indicated Lines: Peripheral IV Supplemental O2: None CODE STATUS: Full code Disposition: Admitted to med/tele for the management of osteomyelitis Assessment and plan discussed with my senior resident Dr. Francisco & attending physician Dr. Kassidy Harris (PGY-1)- Internal medicine resident Attending Provider Attestation/Addendum IDora DO, attest that I was physically present for the carballo portions of the service and evaluated the patient with the resident and I reviewed and discussed the case with the resident and agree with the resident's findings and plans of care as documented above Patient seen and evaluated this AM. He states that he is doing well and patient spoke with Dr. Chaney. He is agreeable to amputation and scheduled for tomorrow morning. Will continue with IV abx at this time and place patient NPO after midnight.
[2024-08-15] MEDS: INSULIN LISPRO (AdmeLOG) 1 UNIT/0.01 ML UNIT SC (17:13)
[2024-08-15] MEDS: ATORVASTATIN CALCIUM 10 MG TABLET PO (20:23)
[2024-08-16] VITALS (12 sets, daily range): BP systolic 116–145; BP diastolic 67–90; PULSE 79–94; RESP 12–19; TEMP 36.2–37; O2SAT 96–100
[2024-08-16] MEDS: PIPER/TAZO 3.375 GM 3.375 GM/50 ML BAG IV ×3 (05:03→21:04)
[2024-08-16 05:54] LABS: Basophils # (Auto) 0.1 Thou/mm3 (0.0-0.2); Basophils % (Auto) 2 % (0-2.5); Eosinophils # (Auto) 0.4 Thou/mm3 (0.0-0.5); Eosinophils % (Auto) 7 % (0-10); Hemoglobin 11.6 g/dL (13.5-16.0); Immature Granulocytes % (Auto) 0 % (0-0); Immature Granulocytes Auto 0.02 Thou/mm3 (0.00-0.00); Lymphocytes # (Auto) 0.9 Thou/mm3 (1.0-4.8); Lymphocytes % (Auto) 17 % (10-50); Mean Corpuscular HGB Conc 34.1 g/dl (31.0-37.0); Mean Corpuscular Hemoglobin 31.9 pg (25.0-35.0); Mean Corpuscular Volume 93 fL (80-100); Monocytes # (Auto) 0.8 Thou/mm3 (0.0-0.8); Monocytes % (Auto) 15 % (0-12); Neutrophils # (Auto) 3.1 Thou/mm3 (1.8-7.7); Neutrophils % (Auto) 59 % (37-80); Nucleated Red Blood Cell % 0 /100 WBC (0); Platelet Count 172 Thou/mm3 (140-440); Red Blood Count 3.64 Miln/mm3 (4.50-5.90); White Blood Count 5.3 Thou/mm3 (3.8-10.6)
[2024-08-16 06:26] LABS: Alanine Aminotransferase 27 U/L (10-49); Albumin, Serum 4.1 gm/dL (3.5-5.0); Albumin/Globulin Ratio 1.7 (1.2-2.2); Alkaline Phosphatase 45 U/L (46-116); Anion Gap 7 (7-16); Aspartate Amino Transferase 16 U/L (0-34); BUN/Creatinine Ratio 11 Ratio (12-20); Bilirubin,Total 0.8 mg/dL (0.3-1.2); Blood Urea Nitrogen 9 mg/dL (9-23); Calcium 9.1 mg/dL (8.3-10.6); Calcium (Corrected) 9.1 mg/dL (8.5-10.1); Carbon Dioxide 28.8 mMol/L (20.0-31.0); Chloride 100 mMol/L (98-107); Creatinine (Component) 0.8 mg/dL (0.6-1.3); Estimated Creatinine Clearance 105.2 mL/min (>60); Globulin 2.4 gm/dL (2.3-3.5); Glucose 114 mg/dL (74-106); Magnesium 1.8 mg/dL (1.6-2.6); Osmolality,Calculated 271 (275-295); Phosphorous 3.4 mg/dL (2.4-5.1); Potassium 4.3 mMol/L (3.4-5.1); Sodium 136 mMol/L (136-145); Total Protein 6.5 gm/dL (5.7-8.2); eGFR > 60 See Note
--- NOTE | 2024-08-16 08:04 | ESPR_ITS ---
Subjective Subjective Interval history: dx of osteo based on xray. esr 5, cp 1.8. unimpressive. on vanco/zosyn from primary team. creat ok. likely pvd based on doppler study prior low titer cocci in 2022. Exam Vital Signs Temp Pulse Resp BP Pulse Ox O2 Del Method 97.9 F 91 18 143/82 H 97 Room Air 08/16/24 04:00 08/16/24 04:00 08/16/24 04:00 08/16/24 04:00 08/16/24 04:00 08/16/24 04:00 Narrative Exam foot wrapped. per pt. he is to have surgery today. that is ok. with pvd. if not healing, may have to go higher with amputation Objective - Internal Medicine Labs 08/16/24 04:55 08/16/24 04:55 Labs: Laboratory Results - last 24 hr 08/16/24 04:55 WBC 5.3 RBC 3.64 L Hgb 11.6 L Hct 34.0 L MCV 93 MCH 31.9 MCHC 34.1 RDW Std Deviation 44.0 H Plt Count 172 Neut % (Auto) 59 Lymph % (Auto) 17 [place] % (Auto) 15 H Eos % (Auto) 7 Baso % (Auto) 2 Neut # (Auto) 3.1 Lymph # (Auto) 0.9 L [place] # (Auto) 0.8 Eos # (Auto) 0.4 Baso # (Auto) 0.1 Immature Gran # (Auto) 0.02 H Absolute Nucleated RBC 0.00 Immature Gran % 0 Nucleated RBC % 0 Sodium 136 Potassium 4.3 Chloride 100 Carbon Dioxide 28.8 Anion Gap 7 BUN 9 Creatinine 0.8 Estim Creat Clear Calc 105.2 eGFR > 60 BUN/Creatinine Ratio 11 L Glucose 114 H Calculated Osmolality 271 L Calcium 9.1 Corrected Calcium 9.1 Phosphorus 3.4 Magnesium 1.8 Total Bilirubin 0.8 AST 16 ALT 27 Alkaline Phosphatase 45 L Total Protein 6.5 Albumin 4.1 Globulin 2.4 Albumin/Globulin Ratio 1.7 Assessment & Plan A&P Narrative possible osteo of foot by xray pvd. see doppler report dmII. a1c variable. on rx as noted. hx of low titer cocci. pos cf in 2023, 1:4 if you are intent on treating for osteo then change to Rocephin 2 gm iv daily and po doxy 1000 bid. I am not as fond of swab cx as the wound team. if iv rx given, then recommend weekly cbc, renal panel, esr and line removal at end of rx. f/u with podiatry and vascular given findings if still in house thru weekend, I may re evaluate Monday repeated cocci as precaution if pt has amputation and it is healing then role of abx absent and they can be stopped 1d post op Time Spent With Patient Time: Total time spent is greater than 50% in coordination of care (as documented) at patient's floor/unit and/or counseling patient:
[2024-08-16 09:11] LABS: Coccid Serology, CF (UCD)* See Sep Rpt
[2024-08-16] MEDS: RINGERS LACTATED 1000 ML 1,000 ML 125 ML IV ×2 (09:30→20:49)
--- NOTE | 2024-08-16 09:50 | PC.SS ---
Follow up note: Pt is on IV antibiotic and pending surgery recommendations.
[2024-08-16 10:00] LABS: HIV (1&2) Antibody Rapid Non-Reactive; Vancomycin,Trough 10.9 mcg/mL (5.0-10.0)
--- NOTE | 2024-08-16 10:36 | XR_ITS ---
Examination: AP right foot single view TECHNIQUE: AP portable right foot single view Exam date and time: August 16, 2024 1040 hours INDICATIONS: Postop amputation fifth ray at the level of the distal fifth metatarsal FINDINGS: Amputation fifth ray at the level of the distal fifth metatarsal No residual bone fragment IMPRESSION: Amputation at the level of the distal fifth metatarsal with no residual bone fragment
[2024-08-16 10:39] LABS: Hepatitis C Antibody Non Reactive (Non React)
--- NOTE | 2024-08-16 10:46 | ESCONSULT_ITS ---
RE: CASSIDY KATZ : 1965 DATE OF CONSULTATION: 08/16/2024 REFERRING PHYSICIAN: Dora Yi DO, Hospitalist REASON FOR CONSULTATION: Osteomyelitis, right foot. HISTORY OF PRESENT ILLNESS: The patient is a diabetic with known peripheral vascular disease who does not come to the hospital much. 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 He had a hernia repair about November of last year by the same doctor doing his amputation. He had a vein stripping in the past as well. His inguinal hernia has healed up very nicely. ALLERGIES: ALLERGIES TO CODEINE CAUSING MOSTLY SIDE EFFECTS. THEY ARE MOSTLY EYE AND OTHER SIMILAR SYMPTOMS. IMMUNIZATIONS: Immunizations are unavailable. FAMILY HISTORY: Noncontributory. Positive for diabetes and cancer in relatives. SOCIAL HISTORY: He lives with his , is a nonsmoker. He works as a junior high school teacher and has done so over the last several years. He seems to be good at it. PHYSICAL EXAMINATION: He has a wrapped right foot. There is no gross evidence of ischemia distally. The fifth metatarsal is infected by x-ray. The source of the infection is not clear. His inflammatory markers are not very elevated, but he does have known peripheral vascular disease as mentioned. ASSESSMENT AND RECOMMENDATIONS: An open amputation is planned. With his circulation, a higher amputation may become necessary. Because the infection will be removed at surgery if he has surgery, but then the antibiotics will be stopped a day later. Feel free to change to Rocephin and doxycycline if nursing home rx is planned. I do not follow any superficial cultures that may have been done by the wound team. They seem to like to do them . I will check on him again moving forward, but I am afraid not until Monday. DT: 09:10:15 TT: 09:58:00 Ref: [id number] - TID: [id number] [facility]ITAL[facility]ane
--- NOTE | 2024-08-16 11:08 | SUR.PHASEII ---
pt received from OR in recovery bay 5. pt awake and alert, breathing unlabored on room air. v/s stable. pt dressing to right foot cdi. report received from Rola CAMARENA and Destini WASHINGTON.
--- NOTE | 2024-08-16 11:25 | PD.SUROPNT ---
Date of Procedure 08/16/24 Pre Op Diagnosis Osteomyelitis of the fifth toe right foot involving metatarsal head and phalanges Post Op Diagnosis Same Procedure Amputation of the right fifth toe at the distal metatarsal level Findings Patient is found to have chronic infection over the right foot with necrosis and granulation tissue. Procedure Description After the patient was brought to the operating room ankle block was given by the anesthesiologist Dr. Garnica. Then he was given sedation. Right foot was washed with Betadine solution and draped in a sterile manner. Timeout was performed. Then I made a racquet shaped incision and removed the distal toe without any difficulty. Because of the extensive osteomyelitis and destruction of the proximal phalanx the bone broke off easily. Then I dissected around the metatarsal head and removed the metatarsal head which also was porous. Then I extended my incision down to the junction of the proximal two thirds with the distal two thirds then I removed the bone. An x-ray was obtained to make sure that there is no infected bone left behind. Wound was then extensively irrigated and all the granulation tissue was removed. Patient had extensive granulation tissue because of the chronic infection then the wound was packed with wet-to-dry fluff Kerlix roll patient tolerates procedure well Anesthesia MAC and regional (Ankle block) Pathology / specimen Other (Amputated fifth toe) Estimated Blood Loss 30 Surgeon Shadi Beck MD Surgical Staff Operation Date: 08/16/24 10:45 Case Staff Anesthesiologist: Morro Garnica
--- NOTE | 2024-08-16 11:25 | SUR.PHASEII ---
pt able to tolerate oral fluids without difficulty swallowing or nausea/vomiting.
--- NOTE | 2024-08-16 11:38 | SUR.PHASEII ---
pt awake and alert, breathing unlabored on room air. v/s stable. pt dressing to right foot cdi. report called to Renee CAMARENA. pt will be transferred to room at this time.
[2024-08-16] MEDS: VANCOMYCIN/WATER 1250 MG IVPB 250 ML 120 MG IV ×2 (11:57→21:04)
[2024-08-16] MEDS: GABAPENTIN 300 MG CAPSULE PO ×2 (11:58→21:04)
[2024-08-16] MEDS: ASPIRIN EC 81 MG TABEC PO (11:59)
[2024-08-16] MEDS: METOPROLOL SUCCINATE XL 25 MG TABCR 50 MG PO (11:59)
[2024-08-16] MEDS: HEPARIN SOD INJ 5000 UNIT/ML VIAL SC ×2 (13:30→21:06)
[2024-08-16] MEDS: INSULIN LISPRO (AdmeLOG) 1 UNIT/0.01 ML UNIT SC (17:45)
--- NOTE | 2024-08-16 18:40 | ESPR_ITS ---
Documentation for date of: 08/16/24 Senior resident attestation: The patient Is a 59-year-old male, history of diabetes mellitus, chronic ulcer right foot, following with wound clinic on outpatient recently started having pus and blood discharge from the wound. History of coronary artery disease on aspirin and Brilinta, also takes metoprolol at home, was told by wound care nurse to go to the ER due to concern for osteomyelitis. Dr. Chaney was consulted, who recommended getting antibiotics initially for treatment of cellulitis, and will perform amputation as fifth metatarsal head is almost completely eroded. Right toe amputation performed 08/16/2024, recommend continuing antibiotics for now. Patient evaluated and examined at the bedside, plan of care discussed with rest of the team including my attending physician, except as noted. Maryam PGY2 Subjective Subjective Interval history: 08/16: No acute overnight events patient seen and examined at bedside patient is being taken to surgery. Patient is seen again in the afternoon status post amputation of the right toe. Patient denies any pain, states everything went well and would not like to take any pain medication unless it is absolutely needed currently patient still has the nerve block so he is not feeling any pain. Informed the patient if he starts to have pain there will be medication that he can request both oral and IV medication will be on as needed. Patient is afebrile and CBC and CMP is unremarkable. And patient is able to tolerate oral diet Exam Vital Signs Temp Pulse Resp BP Pulse Ox O2 Del Method 97.5 F 90 18 116/67 96 Room Air 08/16/24 16:00 08/16/24 16:00 08/16/24 16:00 08/16/24 16:08/16/24 16:08/16/24 16:00 Narrative Exam GENERAL: A&Ox3 . Awake, Not in acute distress NEURO: no focal neurological deficits HEENT: Atraumatic, Normocephalic. mucous membranes moist. Eyes open, symmetrical, & clear HEART: Normal Heart Sounds LUNGS: Clear to auscultation with no wheezing or crackles. ABDOMEN: soft, non-distended, non-tender, bowel sounds heard, no guarding or rebound tenderness SKIN: No Rash or ecchymoses EXTREMITIES: No edema, tenderness, able to move all 4 extremities, pedal pulses palpated, s/p right toe amputation, dressing is clean Objective Labs 08/17/24 05:20 08/17/24 05:20 Labs: Laboratory Results - last 24 hr 08/16/24 08/16/24 04:55 08:45 WBC 5.3 RBC 3.64 L Hgb 11.6 L Hct 34.0 L MCV 93 MCH 31.9 MCHC 34.1 RDW Std Deviation 44.0 H Plt Count 172 Neut % (Auto) 59 Lymph % (Auto) 17 [place] % (Auto) 15 H Eos % (Auto) 7 Baso % (Auto) 2 Neut # (Auto) 3.1 Lymph # (Auto) 0.9 L [place] # (Auto) 0.8 Eos # (Auto) 0.4 Baso # (Auto) 0.1 Immature Gran # (Auto) 0.02 H Absolute Nucleated RBC 0.00 Immature Gran % 0 Nucleated RBC % 0 Sodium 136 Potassium 4.3 Chloride 100 Carbon Dioxide 28.8 Anion Gap 7 BUN 9 Creatinine 0.8 Estim Creat Clear Calc 105.2 eGFR > 60 BUN/Creatinine Ratio 11 L Glucose 114 H Calculated Osmolality 271 L Calcium 9.1 Corrected Calcium 9.1 Phosphorus 3.4 Magnesium 1.8 Total Bilirubin 0.8 AST 16 ALT 27 Alkaline Phosphatase 45 L Total Protein 6.5 Albumin 4.1 Globulin 2.4 Albumin/Globulin Ratio 1.7 Vancomycin Trough 10.9 H Hepatitis C Antibody Non Reactive HIV 1&2 Antibody Rapid Non-Reactive Quality Measures Quality Measures none Assessment & Plan Assessment Current Active Medications: Generic Name Dose Route Start Last Admin Trade Name Adam PRN Reason Stop Dose Admin Acetaminophen 650 mg 08/14/24 15:49 Acetaminophen 325 Mg Tablet PO 09/13/24 15:48 Q6H PRN Fever >101.5 Acetaminophen 650 mg 08/14/24 15:49 Acetaminophen 325 Mg Tablet PO 09/13/24 15:48 Q6H PRN PAIN SCALE 1-3 (mild Hydrocodone Bitart/Acetaminophen 1 tab 08/14/24 15:49 Hydrocodone/Apap 5/325 Tablet PO 08/19/24 15:48 Q4HR PRN PAIN SCALE 4-6 (Moderate Hydrocodone Bitart/Acetaminophen 1 tab 08/14/24 15:49 Hydrocodone/Apap 10/325 Tab PO 08/19/24 15:48 Q4HR PRN PAIN SCALE 7-10 (Severe Aspirin 81 mg 08/15/24 09:00 08/16/24 11:59 Aspirin Ec 81 Mg Tabec PO 09/14/24 08:59 81 mg QDAY CARMEN Administration Atorvastatin Calcium 10 mg 08/14/24 21:00 08/15/24 20:23 Atorvastatin Calcium 10 Mg Tablet PO 09/13/24 20:59 10 mg HS CARMEN Administration Dextrose 25 ml 08/14/24 15:49 Dextrose 50%-Water Inj 50 Ml Syringe IV 09/13/24 15:48 Q15MIN PRN BG 50-70 responsive npo pt Dextrose 50 ml 08/14/24 15:49 Dextrose 50%-Water Inj 50 Ml Syringe IV 09/13/24 15:48 Q15MIN PRN BG <50 OR BG <70 & pt unresponsive Docusate Sodium 100 mg 08/15/24 09:00 08/16/24 12:00 Docusate Sod 100 Mg Capsule PO 09/14/24 08:59 Not Given QDAY CARMEN Protocol Gabapentin 300 mg 08/14/24 21:00 08/16/24 11:58 Gabapentin 300 Mg Capsule PO 09/13/24 20:59 300 mg BID CARMEN Administration Glucagon 1 mg 08/14/24 15:49 Glucagon Inj 1 Mg Vial IM Q15MIN PRN BG <70, and no IV access Heparin Sodium (Porcine) 5,000 unit 08/14/24 22:00 08/16/24 13:30 Heparin Sod Inj 5000 Unit/Ml Vial SC 08/28/24 21:59 5,000 unit Q8HR CARMEN Administration Lactated Ringer's 1,000 mls @ 125 mls/hr 08/14/24 16:00 08/16/24 13:29 Lactated Ringers IV 09/13/24 15:59 Not Given .Q8H CARMEN Piperacillin/Tazobactam/Dextrose 3.375 gm in 50 mls @ 12.5 mls/hr 08/14/24 22:00 08/16/24 13:30 Zosyn IV 08/21/24 21:59 12.5 mls/hr Q8HR CARMEN Administration Vancomycin HCl 250 mls @ 120 mls/hr 08/16/24 10:00 08/16/24 11:57 Vancomycin/Water 1250 Mg Ivpb IV 08/23/24 09:59 120 mls/hr Q12H CARMEN Administration Protocol Acetaminophen 1,000 mg in 100 mls @ 250 mls/hr 08/16/24 12:30 08/16/24 17:42 Ofirmev Inj IV 08/17/24 06:23 Not Given Q6HR CARMEN Insulin Human Lispro 0 unit 08/16/24 12:00 08/16/24 17:45 Insulin Lispro (Admelog) 1 Unit/0.01 Ml Unit SC 09/15/24 11:59 1 unit ACHS CARMEN Administration Protocol Metoprolol Succinate 50 mg 08/15/24 09:00 08/16/24 11:59 Metoprolol Succinate Xl 25 Mg Tabcr PO 09/14/24 08:59 50 mg QDAY CARMEN Administration Morphine Sulfate 1 mg 08/16/24 14:40 Morphine Sulf Inj 10 Mg/Ml Vial IVP 08/21/24 14:35 Q4HR PRN severe pain 7-10 Ondansetron HCl 4 mg 08/14/24 15:49 Ondansetron Inj 2 Mg/Ml Inj 2 Ml IV 09/13/24 15:48 Q6H PRN NAUSEA OR VOMITING Protocol Pharmacy Consult 1 each 08/15/24 09:00 Vancomycin Pharmacy To Dose 1 Each Each IV 09/14/24 08:59 QDAY PRN CONSULT Sennosides 1 tab 08/15/24 09:00 08/16/24 11:59 Senna Tablet PO 09/14/24 08:59 Not Given QDAY [facility] Protocol Plan Mr. Mullen is a 59-year-old male with past medical history of type 2 diabetes (A1c 5.8), essential tremor on gabapentin, CAD status post stent October 2022 on Brilinta and aspirin and metoprolol, who presented to [facility] [place] with a chief complaint of fever and chills following several weeks of right foot pain. Patient is followed at the wound care center after developing a blister on his right foot in February which was later complicated in april that he has been following with the wound care center since April without improvement. Pt is admited to the hospital for further management of osteomylitis of his right foot. #Osteomyelitis right toe s/p amputation 08/16 #Diabetic foot Patient has been following with wound care since april for a foot wound on the right lower extremity Foot x-ray reveals fifth metatarsal osteomyelitis General surgery consult ordered, Dr. Chaney performed the amputation on 08/16 -Wound culture ordered -Wound care ordered -Vancomycin and Zosyn -Blood cultures no growth after 24 hours -Light IV fluid resuscitation -ID consultation ordered - consider PICC line once blood cultures are negative -PT evaluation ordered -Pain medications as needed are ordered #CAD status post stents (October 2022) Holding Brilinta for potential surgical intervention Continue aspirin 81 mg p.o. daily Continue with statin #Essential tremor Continue gabapentin 300 mg p.o. twice daily Health Maintenance: DVT prophylaxis: Heparin 5000 IU every 8 hourly GI prophylaxis: Not indicated Diet: Carb consistent low Andre: Not indicated Lines: Peripheral IV Supplemental O2: None CODE STATUS: Full code Disposition: Admitted to med/tele for the management of osteomyelitis Assessment and plan discussed with my senior resident Dr. Francisco & attending physician Dr. Kassidy Harris (PGY-1)- Internal medicine resident Attending Provider Attestation/Addendum I, Dora Yi, , attest that I was physically present for the carballo portions of the service and evaluated the patient with the resident and I reviewed and discussed the case with the resident and agree with the resident's findings and plans of care as documented above Patient seen and evaluated this AM. Patient underwent amputation of right fifth toe to distal metatarsal. Patient reports no pain. Dressing is clean, dry and intact. Will Continue with pain control prn and wound care. Will speak to surgeon regarding margins. If clean, patient will not need abx on discharge
[2024-08-16] MEDS: ATORVASTATIN CALCIUM 10 MG TABLET PO (21:04)
[2024-08-17] VITALS (7 sets, daily range): BP systolic 118–145; BP diastolic 74–86; PULSE 77–90; RESP 16–18; TEMP 36.1–36.9; O2SAT 96–99; BMI 25.9
[2024-08-17] MEDS: PIPER/TAZO 3.375 GM 3.375 GM/50 ML BAG IV (05:04)
[2024-08-17] MEDS: HEPARIN SOD INJ 5000 UNIT/ML VIAL SC ×2 (05:04→13:52)
[2024-08-17 05:38] LABS: Basophils # (Auto) 0.1 Thou/mm3 (0.0-0.2); Basophils % (Auto) 2 % (0-2.5); Eosinophils # (Auto) 0.5 Thou/mm3 (0.0-0.5); Eosinophils % (Auto) 11 % (0-10); Hemoglobin 11.2 g/dL (13.5-16.0); Immature Granulocytes % (Auto) 1 % (0-0); Immature Granulocytes Auto 0.03 Thou/mm3 (0.00-0.00); Lymphocytes % (Auto) 21 % (10-50); Mean Corpuscular HGB Conc 33.9 g/dl (31.0-37.0); Mean Corpuscular Hemoglobin 31.7 pg (25.0-35.0); Mean Corpuscular Volume 94 fL (80-100); Monocytes # (Auto) 0.8 Thou/mm3 (0.0-0.8); Monocytes % (Auto) 16 % (0-12); Neutrophils # (Auto) 2.5 Thou/mm3 (1.8-7.7); Neutrophils % (Auto) 51 % (37-80); Nucleated Red Blood Cell % 0 /100 WBC (0); Platelet Count 160 Thou/mm3 (140-440); RDW Standard Deviation 43.5 fL (35.1-43.9); Red Blood Count 3.53 Miln/mm3 (4.50-5.90); White Blood Count 4.9 Thou/mm3 (3.8-10.6)
[2024-08-17 06:09] LABS: Alanine Aminotransferase 23 U/L (10-49); Albumin, Serum 3.8 gm/dL (3.5-5.0); Albumin/Globulin Ratio 1.5 (1.2-2.2); Alkaline Phosphatase 48 U/L (46-116); Anion Gap 7 (7-16); Aspartate Amino Transferase 15 U/L (0-34); BUN/Creatinine Ratio 10 Ratio (12-20); Bilirubin,Total 0.6 mg/dL (0.3-1.2); Blood Urea Nitrogen 7 mg/dL (9-23); Calcium (Corrected) 9.2 mg/dL (8.5-10.1); Carbon Dioxide 29.7 mMol/L (20.0-31.0); Chloride 102 mMol/L (98-107); Creatinine (Component) 0.7 mg/dL (0.6-1.3); Estimated Creatinine Clearance 120.2 mL/min (>60); Globulin 2.5 gm/dL (2.3-3.5); Glucose 135 mg/dL (74-106); Magnesium 1.7 mg/dL (1.6-2.6); Osmolality,Calculated 277 (275-295); Phosphorous 3.6 mg/dL (2.4-5.1); Potassium 4.4 mMol/L (3.4-5.1); Sodium 139 mMol/L (136-145); Total Protein 6.3 gm/dL (5.7-8.2); eGFR > 60 See Note
[2024-08-17] MEDS: RINGERS LACTATED 1000 ML 1,000 ML 125 ML IV (06:58)
[2024-08-17] MEDS: ASPIRIN EC 81 MG TABEC PO (08:01)
[2024-08-17] MEDS: GABAPENTIN 300 MG CAPSULE PO ×2 (08:01→20:46)
[2024-08-17] MEDS: METOPROLOL SUCCINATE XL 25 MG TABCR 50 MG PO (08:02)
[2024-08-17] MEDS: DOXYCYCLINE 100 MG TABLET PO ×2 (10:15→20:46)
[2024-08-17] MEDS: cefTRIAXone/D5w 1gm IV premix 50 ML IV (10:15)
[2024-08-17] MEDS: INSULIN LISPRO (AdmeLOG) 1 UNIT/0.01 ML UNIT SC (11:34)
--- NOTE | 2024-08-17 12:47 | PC.DIETICIAN ---
1. Recommend Ze BID for targeted nutrition and wound healing. 2. Recommend add Vitamin C 500mg BID daily, zinc 220mg, Multivitamin-Mineral daily to ensure adequate nutrient intake and promote wound healing. 3. Recommend add 2-3 oz extra protein per meal. RD to remain available as requested or needed.
--- NOTE | 2024-08-17 18:51 | ESPR_ITS ---
Documentation for date of: 08/17/24 Subjective Subjective Interval history: Patient is noted sitting up in chair, dressing change was done early in the morning, noticed dressing soaked in blood, alerted RN. Spoke to Dr. Chaney about antibiotics, x-ray postprocedure shows no active disease/osteomyelitis, per Dr. Chaney he took out the infected bone, would like antibiotics to be continued for treatment of cellulitis and surrounding soft tissue infection. Anticipate discharge tomorrow on p.o. antibiotics. Exam Vital Signs Temp Pulse Resp BP Pulse Ox O2 Del Method 98.4 F 82 16 118/79 99 Room Air 08/17/24 16:00 08/17/24 16:00 08/17/24 16:00 08/17/24 16:00 08/17/24 16:00 08/17/24 16:00 Narrative Exam GENERAL: A&Ox3 . Awake, Not in acute distress NEURO: no focal neurological deficits HEENT: Atraumatic, Normocephalic. mucous membranes moist. Eyes open, symmetrical, & clear HEART: Normal Heart Sounds LUNGS: Clear to auscultation with no wheezing or crackles. ABDOMEN: soft, non-distended, non-tender, bowel sounds heard, no guarding or rebound tenderness SKIN: No Rash or ecchymoses EXTREMITIES: No edema, tenderness, able to move all 4 extremities, pedal pulses palpated, s/p right toe amputation, dressing is soaked with blood Objective Labs 08/18/24 04:56 08/18/24 04:56 Labs: Laboratory Results - last 24 hr 08/17/24 05:20 WBC 4.9 RBC 3.53 L Hgb 11.2 L Hct 33.0 L MCV 94 MCH 31.7 MCHC 33.9 RDW Std Deviation 43.5 Plt Count 160 Neut % (Auto) 51 Lymph % (Auto) 21 [place] % (Auto) 16 H Eos % (Auto) 11 H Baso % (Auto) 2 Neut # (Auto) 2.5 Lymph # (Auto) 1.0 [place] # (Auto) 0.8 Eos # (Auto) 0.5 Baso # (Auto) 0.1 Immature Gran # (Auto) 0.03 H Absolute Nucleated RBC 0.00 Immature Gran % 1 H Nucleated RBC % 0 Sodium 139 Potassium 4.4 Chloride 102 Carbon Dioxide 29.7 Anion Gap 7 BUN 7 L Creatinine 0.7 Estim Creat Clear Calc 120.2 eGFR > 60 BUN/Creatinine Ratio 10 L Glucose 135 H Calculated Osmolality 277 Calcium 9.0 Corrected Calcium 9.2 Phosphorus 3.6 Magnesium 1.7 Total Bilirubin 0.6 AST 15 ALT 23 Alkaline Phosphatase 48 Total Protein 6.3 Albumin 3.8 Globulin 2.5 Albumin/Globulin Ratio 1.5 Quality Measures Quality Measures none Assessment & Plan Assessment Current Active Medications: Generic Name Dose Route Start Last Admin Trade Name Freq PRN Reason Stop Dose Admin Acetaminophen 650 mg 08/14/24 15:49 Acetaminophen 325 Mg Tablet PO 09/13/24 15:48 Q6H PRN Fever >101.5 Acetaminophen 650 mg 08/14/24 15:49 Acetaminophen 325 Mg Tablet PO 09/13/24 15:48 Q6H PRN PAIN SCALE 1-3 (mild Hydrocodone Bitart/Acetaminophen 1 tab 08/14/24 15:49 Hydrocodone/Apap 5/325 Tablet PO 08/19/24 15:48 Q4HR PRN PAIN SCALE 4-6 (Moderate Hydrocodone Bitart/Acetaminophen 1 tab 08/14/24 15:49 Hydrocodone/Apap 10/325 Tab PO 08/19/24 15:48 Q4HR PRN PAIN SCALE 7-10 (Severe Aspirin 81 mg 08/15/24 09:00 08/17/24 08:01 Aspirin Ec 81 Mg Tabec PO 09/14/24 08:59 81 mg QDAY CARMEN Administration Atorvastatin Calcium 10 mg 08/14/24 21:00 08/16/24 21:04 Atorvastatin Calcium 10 Mg Tablet PO 09/13/24 20:59 10 mg HS CARMEN Administration Dextrose 25 ml 08/14/24 15:49 Dextrose 50%-Water Inj 50 Ml Syringe IV 09/13/24 15:48 Q15MIN PRN BG 50-70 responsive npo pt Dextrose 50 ml 08/14/24 15:49 Dextrose 50%-Water Inj 50 Ml Syringe IV 09/13/24 15:48 Q15MIN PRN BG <50 OR BG <70 & pt unresponsive Docusate Sodium 100 mg 08/15/24 09:00 08/17/24 08:01 Docusate Sod 100 Mg Capsule PO 09/14/24 08:59 Not Given QDAY CARMEN Protocol Doxycycline Hyclate 100 mg 08/17/24 09:00 08/17/24 10:15 Doxycycline 100 Mg Tablet PO 08/24/24 08:59 100 mg BID CARMEN Administration Gabapentin 300 mg 08/14/24 21:00 08/17/24 08:01 Gabapentin 300 Mg Capsule PO 09/13/24 20:59 300 mg BID CARMEN Administration Glucagon 1 mg 08/14/24 15:49 Glucagon Inj 1 Mg Vial IM Q15MIN PRN BG <70, and no IV access Heparin Sodium (Porcine) 5,000 unit 08/14/24 22:00 08/17/24 13:52 Heparin Sod Inj 5000 Unit/Ml Vial SC 08/28/24 21:59 5,000 unit Q8HR CARMEN Administration Ceftriaxone Sodium/Dextrose 50 mls @ 100 mls/hr 08/17/24 09:00 08/17/24 10:15 Rocephin/D5w 1gm Iv Premix IV 08/24/24 08:59 100 mls/hr QDAY CARMEN Administration Insulin Human Lispro 0 unit 08/16/24 12:00 08/17/24 17:21 Insulin Lispro (Admelog) 1 Unit/0.01 Ml Unit SC 09/15/24 11:59 Not Given ACHS [facility] Protocol Metoprolol Succinate 50 mg 08/15/24 09:00 08/17/24 08:02 Metoprolol Succinate Xl 25 Mg Tabcr PO 09/14/24 08:59 50 mg QDAY CARMEN Administration Ondansetron HCl 4 mg 08/14/24 15:49 Ondansetron Inj 2 Mg/Ml Inj 2 Ml IV 09/13/24 15:48 Q6H PRN NAUSEA OR VOMITING Protocol Sennosides 1 tab 08/15/24 09:00 08/17/24 08:01 Senna Tablet PO 09/14/24 08:59 Not Given QDAY [facility] Protocol Plan Mr. Mullen is a 59-year-old male with past medical history of type 2 diabetes (A1c 5.8), essential tremor on gabapentin, CAD status post stent October 2022 on Brilinta and aspirin and metoprolol, who presented to [facility] [place] with a chief complaint of fever and chills following several weeks of right foot pain. Patient is followed at the wound care center after developing a blister on his right foot in February which was later complicated in april that he has been following with the wound care center since April without improvement. Pt is admited to the hospital for further management of osteomylitis of his right foot. #Osteomyelitis right toe s/p amputation 08/16 #Diabetic foot Patient has been following with wound care since april for a foot wound on the right lower extremity Foot x-ray reveals fifth metatarsal osteomyelitis General surgery consult ordered, Dr. Chaney performed the amputation on 08/16 -Wound culture ordered -Wound care ordered -Vancomycin and Zosyn -Blood cultures no growth after 24 hours -Light IV fluid resuscitation -ID consultation ordered - consider PICC line once blood cultures are negative -PT evaluation ordered -Pain medications as needed are ordered #CAD status post stents (October 2022) Holding Brilinta for potential surgical intervention Continue aspirin 81 mg p.o. daily Continue with statin #Essential tremor Continue gabapentin 300 mg p.o. twice daily Health Maintenance: DVT prophylaxis: Heparin 5000 IU every 8 hourly GI prophylaxis: Not indicated Diet: Carb consistent low Andre: Not indicated Lines: Peripheral IV Supplemental O2: None CODE STATUS: Full code Disposition: Admitted to med/tele for the management of osteomyelitis The plan of care was discussed with my attending physician DO Renaldo Pastrana MD PGY2 This document was completed utilizing speech recognition software. Grammatical errors, random word insertions, pronoun errors, and incomplete sentences are an occasional consequence of this system due to software limitations, ambient noise, and hardware issues. Any formal questions or concerns about the content, text or information contained within the body of this dictation should be directly addressed to the provider for clarification. Attending Provider Attestation/Addendum [place], Dora Yi DO, attest that I was physically present for the carballo portions of the service and evaluated the patient with the resident and I reviewed and discussed the case with the resident and agree with the resident's findings and plans of care as documented above Patient seen and evaluated this AM. Patient had undergone dressing change this morning at 3:45am. Patient states that the dressing had been clean at the time. However, blood noted over dressing this morning. Spoke with surgeon, will redo dressing change with dry fluff and compression. Patient will need some oral antibiotics for overlying cellulitis, but infected bone at head of metatarsal was cleaned out per surgeon. No residual osteomyelitis noted on foot xr.
[2024-08-17] MEDS: ATORVASTATIN CALCIUM 10 MG TABLET PO (20:46)
[2024-08-17 21:34] LABS: Vancomycin,Trough 6.8 mcg/mL (5.0-10.0)
[2024-08-18] VITALS: BP 130/77; PULSE 86; RESP 17; TEMP 36.4; O2SAT 98
[2024-08-18 04:00] VITALS: BP 140/82; PULSE 85; RESP 17; TEMP 36.4; O2SAT 98
[2024-08-18 05:44] LABS: Basophils # (Auto) 0.1 Thou/mm3 (0.0-0.2); Basophils % (Auto) 2 % (0-2.5); Eosinophils # (Auto) 0.6 Thou/mm3 (0.0-0.5); Eosinophils % (Auto) 13 % (0-10); Hematocrit 33.6 % (41.0-53.0); Hemoglobin 11.7 g/dL (13.5-16.0); Immature Granulocytes % (Auto) 0 % (0-0); Immature Granulocytes Auto 0.01 Thou/mm3 (0.00-0.00); Lymphocytes # (Auto) 1.3 Thou/mm3 (1.0-4.8); Lymphocytes % (Auto) 30 % (10-50); Mean Corpuscular HGB Conc 34.8 g/dl (31.0-37.0); Mean Corpuscular Hemoglobin 31.9 pg (25.0-35.0); Mean Corpuscular Volume 92 fL (80-100); Monocytes # (Auto) 0.7 Thou/mm3 (0.0-0.8); Monocytes % (Auto) 16 % (0-12); Neutrophils # (Auto) 1.7 Thou/mm3 (1.8-7.7); Neutrophils % (Auto) 39 % (37-80); Nucleated Red Blood Cell % 0 /100 WBC (0); Platelet Count 195 Thou/mm3 (140-440); Red Blood Count 3.67 Miln/mm3 (4.50-5.90); White Blood Count 4.2 Thou/mm3 (3.8-10.6)
[2024-08-18] MEDS: HEPARIN SOD INJ 5000 UNIT/ML VIAL SC (06:02)
[2024-08-18 06:07] LABS: Alanine Aminotransferase 24 U/L (10-49); Albumin, Serum 3.8 gm/dL (3.5-5.0); Anion Gap 6 (7-16); Aspartate Amino Transferase 19 U/L (0-34); BUN/Creatinine Ratio 10 Ratio (12-20); Bilirubin,Total 0.5 mg/dL (0.3-1.2); Blood Urea Nitrogen 7 mg/dL (9-23); Calcium 9.2 mg/dL (8.3-10.6); Calcium (Corrected) 9.4 mg/dL (8.5-10.1); Carbon Dioxide 30.4 mMol/L (20.0-31.0); Chloride 103 mMol/L (98-107); Creatinine (Component) 0.7 mg/dL (0.6-1.3); Estimated Creatinine Clearance 120.2 mL/min (>60); Glucose 136 mg/dL (74-106); Osmolality,Calculated 277 (275-295); Potassium 4.5 mMol/L (3.4-5.1); Sodium 139 mMol/L (136-145); Total Protein 6.2 gm/dL (5.7-8.2); eGFR > 60 See Note
[2024-08-18 06:08] LABS: Albumin/Globulin Ratio 1.6 (1.2-2.2); Alkaline Phosphatase 50 U/L (46-116); Globulin 2.4 gm/dL (2.3-3.5)
[2024-08-18 08:00] VITALS: BP 133/83; PULSE 76; PULSE 90; RESP 18; TEMP 36.1; O2SAT 99
[2024-08-18] MEDS: DOXYCYCLINE 100 MG TABLET PO (08:06)
[2024-08-18] MEDS: ASPIRIN EC 81 MG TABEC PO (08:06)
[2024-08-18 08:08] VITALS: BP 133/83; PULSE 76
[2024-08-18] MEDS: METOPROLOL SUCCINATE XL 25 MG TABCR 50 MG PO (08:08)
[2024-08-18] MEDS: cefTRIAXone/D5w 1gm IV premix 50 ML IV (08:09)
[2024-08-18] MEDS: GABAPENTIN 300 MG CAPSULE PO (08:09)
[2024-08-18 12:00] VITALS: BP 132/87; PULSE 79; PULSE 89; RESP 16; TEMP 35.9; O2SAT 99
--- NOTE | 2024-08-18 13:32 | PC.PT ---
PT eval completed. Recommendation is for FWW as safest assistive device for home DC. Crutches are ill fitted and not safest option for this Patient. Thank you.
--- NOTE | 2024-08-18 14:05 | ESDS_ITS ---
<Statement entered by Dora Yi DO - 08/18/24 15:14> I, Dora Yi DO, attest that I was physically present for the carballo portions of the service and evaluated the patient with the resident and I reviewed and discussed the case with the resident and agree with the resident's findings and plans of care as documented above Planned Discharge Date 08/18/24 DS: Providers Provider Date of admission: 08/14/24 15:50 Primary care physician: Farnaz Heck NP Admitting Provider: Dora Yi DO Attending Provider on Admission: Dora Yi DO Consults: 08/14/24 15:04 Consult to General Surgery Stat Comment: Diabetic foot infection Consulting Provider: Shadi Beck 08/14/24 16:09 Consult to Infectious Diseases Stat Comment: osteomyelitis Consulting Provider: Ayo Mireles Attending Provider on DC: Tina Harris MD Discharging Provider: Tina Harris MD DS: Diagnosis Problem List Completed Was Problem List Reviewed/Reconciled?: Yes Hospital Course Hospital Course Hospital course: Mr. Mullen is a 59-year-old male with past medical history of type 2 diabetes (A1c 5.8), essential tremor on gabapentin, CAD status post stent October 2022 on Brilinta and aspirin and metoprolol, who presented to [facility] [place] on 08/14/24 with a chief complaint of fever and chills following several weeks of right foot pain. Patient was following wound care center after developing a blister on his right foot in February which was later complicated in April that he has been following with the wound care center since April without improvement. Pt was admitted to the hospital for further management of osteomylitis of his right foot. General surgery was consulted, Pt was found to have Osteomyelitis of the fifth toe right foot involving metatarsal head and phalange. Pt underwent Amputation of the right fifth toe at the distal metatarsal level on 08/16/24. Per general surgery recommended for pt to continue antibiotics for cellulitis of the surrounding tissue although x-ray post procedure shows no active disease/osteomyelitis, per general surgery the infected bone is completely removed. And the wound post surgery is left open and Pt is to follow up outpatient wound care. Images right foot x-ray - Prominent osteomyelitis distal fifth metatarsal and proximal phalanx fifth digit Arterial/peripheral duplex ultrasound- Suspicious for obstructive arterial disease in the trifurcation arteries below the knee on the right Postprocedural right foot x-ray- Amputation at the level of the distal fifth metatarsal with no residual bone fragment Discharge Recommendations Patient is recommended to follow-up with PCP within 1 week to discuss recent hospitalization Patient is recommended to follow-up with orthopedic surgery in 2 weeks to assess wound site Patient is recommended to follow-up with the wound care center in regards to managing the wound site Patient will be sent home on Bactrim for 7 days for management of cellulitis and is recommended to continue antibiotic therapy until completion. Hospitalization Diagnosis #Osteomyelitis right toe s/p amputation 08/16 #Diabetic foot #CAD status post stents (October 2022) #Essential tremor Assessment and plan discussed with my attending physician Dr. Kassidy Harris (PGY-1)- Internal medicine resident Time Spent with Patient Time attestation: Total time spent providing and/or coordinating discharge services: >30 min Exam Vital Signs Temp Pulse Resp BP Pulse Ox O2 Del Method 96.6 F L 79 16 132/87 H 99 Room Air 08/18/24 12:00 08/18/24 12:00 08/18/24 12:00 08/18/24 12:00 08/18/24 12:00 08/18/24 12:00 Narrative Exam GENERAL: A&Ox3 . Awake, Not in acute distress NEURO: no focal neurological deficits HEENT: Atraumatic, Normocephalic. mucous membranes moist. Eyes open, symmetrical, & clear HEART: Normal Heart Sounds LUNGS: Clear to auscultation with no wheezing or crackles. ABDOMEN: soft, non-distended, non-tender, bowel sounds heard, no guarding or rebound tenderness SKIN: No Rash or ecchymoses EXTREMITIES: No edema, tenderness, able to move all 4 extremities, pedal pulses palpated, s/p right toe amputation, dressing clean and dry Discharge Plan Plan Patient Disposition: HOME (Self Care) Patient condition on transfer: Stable Care Plan Goals: Patient is recommended to follow-up with PCP within 1 week to discuss recent hospitalization Patient is recommended to follow-up with orthopedic surgery in 2 weeks to assess wound site Patient is recommended to follow-up with the wound care center in regards to managing the wound site Patient will be sent home on Bactrim for 7 days for management of cellulitis and is recommended to continue antibiotic therapy until completion. Prescriptions/Referrals Prescriptions/Med Rec: New sulfamethoxazole-trimethoprim [Bactrim] 400-80 mg tablet 1 tab PO BID Qty: 14 0RF Continued metoprolol succinate 50 mg Tablet Extended Release 24 Hr 50 mg PO QDAY metformin 1,000 mg Tablet 500 mg PO BID Hold Instructions: Resume on 11/18/22. MAY RESUME ON MONDAY aspirin 81 mg Tablet,Delayed Release (Dr/Ec) 81 mg PO QDAY gabapentin 300 mg Capsule 300 mg PO BID rosuvastatin 10 mg Tablet 10 mg PO QDAY Ozempic 1 mg/dose (4 mg/3 mL) Pen Injector 1 mg SUBCUT QWEEK Hold Instructions: Resume on 06/16/23. Referrals: Shadi Beck MD [Physician] - Farnaz Heck NP [Primary Care Provider] - Patient/Caregiver Discharge Instructions Discharge Activity: activity as tolerated Other Discharge Activity Instructions:: Patient is recommended to follow-up with Primary Care Provider within 1 week to discuss recent hospitalization Patient is recommended to follow-up with orthopedic surgery in 2 weeks to assess wound site Patient is recommended to follow-up with the wound care center in regards to managing the wound site Patient will be sent home on Bactrim for 7 days for management of cellulitis and is recommended to continue antibiotic therapy until completion. Education Materials: Amputation What to Expect After, Preventing Surgical Site Infections Print Language: Japanese Stand Alone Forms: Shireen Award Info., Patient Portal Info Letter Discharge Order Discharge Orders: Discharge (Routine); Ordered 08/18/24 Ordered By: Kinza Vázquez Quality Discharge Quality Measures VTE prophylaxis
--- NOTE | 2024-08-18 15:11 | PC.SS ---
[employer]riculture [employer] (ROMEO) Leticia received a phone call from PT whom requested a FWW for patient. SW ordered FWW through [facility]. SW uploaded information to [facility].
[2024-08-18 16:00] VITALS: BP 142/89; PULSE 78; PULSE 79; RESP 18; TEMP 36.2; O2SAT 99
== END 2024-08-18 17:41 | disposition home or self-care (01) | DRG 617 ==
LOC: SERX 15:13 → SERHOLD 16:29 → S3EX 19:50 → S3NX 08-15 15:36
PROVIDERS: Internal Medicine Infectious Disease; Nurse Practitioner Primary Care; Student in an Organized Health Care Education/Training Program; Surgery; Admitting Provider Internal Medicine; Emergency Provider Emergency Medicine; PCP Registered Nurse; Visit Provider Internal Medicine
PROC: 0Y6X0Z0 Detachment at Right 5th Toe, Complete, Open Approach (ICD-10-PCS; CPT 28820; principal; 2024-08-16 10:30)
DX: E11.69 Type 2 diabetes mellitus with other specified complication (principal); L03.115 Cellulitis of right lower limb; M86.171 Other acute osteomyelitis, right ankle and foot; I25.10 Atherosclerotic heart disease of native coronary artery without angina pectoris; G25.0 Essential tremor; Z95.5 Presence of coronary angioplasty implant and graft
CPT/HCPCS: 36415; 73630; 80053; 80202; 83036; 83605; 83735; 84100; 84145; 85025; 85610; 85652; 85730; 86140; 86171; 86703; 86803; 87040; 87070; 87205; 93225; 93922; 97161; 99285; A4217; A4649; J0696; J1643; J1815; J2250; J2543; J2704; J2795; J3010; J3370; J3371; J3372; J3475; J7040; J7120; A9270

== ENCOUNTER → 2024-08-20 | Outpatient (CLI) | payer OTHER, SELFPAY | END | disposition home or self-care (01) | LOC: SWHD 08:41 | PROVIDERS: PCP Registered Nurse; Referring Provider Registered Nurse; Visit Provider Student in an Organized Health Care Education/Training Program | DX: I96 Gangrene, not elsewhere classified (principal); E11.621 Type 2 diabetes mellitus with foot ulcer; L97.516 Non-pressure chronic ulcer of other part of right foot with bone involvement without evidence of necrosis; E11.40 Type 2 diabetes mellitus with diabetic neuropathy, unspecified; Z79.84 Long term (current) use of oral hypoglycemic drugs; D64.9 Anemia, unspecified | CPT/HCPCS: 11042; A9270 ==

== ENCOUNTER 2024-08-30 09:37 | Outpatient (RCR) | payer OTHER, SELFPAY | END 2024-08-30 23:59 | disposition home or self-care (01) | LOC: SWHD 09:37 | PROVIDERS: PCP Registered Nurse; Referring Provider Registered Nurse; Visit Provider Surgery | DX: I96 Gangrene, not elsewhere classified (principal); E11.621 Type 2 diabetes mellitus with foot ulcer; L97.516 Non-pressure chronic ulcer of other part of right foot with bone involvement without evidence of necrosis; E11.40 Type 2 diabetes mellitus with diabetic neuropathy, unspecified; Z79.84 Long term (current) use of oral hypoglycemic drugs; D64.9 Anemia, unspecified | CPT/HCPCS: 11044; 82962; 99212; 99213; A9270; G0277; G0463 ==

== ENCOUNTER 2024-09-27 09:41 | Outpatient (RCR) | payer OTHER, SELFPAY | END 2024-09-27 23:59 | disposition home or self-care (01) | LOC: SWHD 09:41 | PROVIDERS: PCP Registered Nurse; Referring Provider Registered Nurse; Visit Provider Surgery | DX: E11.621 Type 2 diabetes mellitus with foot ulcer (principal); L97.512 Non-pressure chronic ulcer of other part of right foot with fat layer exposed; E11.40 Type 2 diabetes mellitus with diabetic neuropathy, unspecified; Z79.84 Long term (current) use of oral hypoglycemic drugs; D64.9 Anemia, unspecified; Z89.421 Acquired absence of other right toe(s) | CPT/HCPCS: 17250; 97597 ×2; 82962; 99213; A9270; G0277; G0463 ==

== ENCOUNTER 2024-10-10 09:47 | Outpatient (RCR) | payer OTHER, SELFPAY | END 2024-10-28 23:59 | disposition home or self-care (01) | LOC: SWHD 09:47 | PROVIDERS: PCP Registered Nurse; Referring Provider Registered Nurse; Visit Provider Student in an Organized Health Care Education/Training Program | DX: E11.621 Type 2 diabetes mellitus with foot ulcer (principal); T81.89XA Other complications of procedures, not elsewhere classified, initial encounter; E11.40 Type 2 diabetes mellitus with diabetic neuropathy, unspecified; Z79.84 Long term (current) use of oral hypoglycemic drugs; D64.9 Anemia, unspecified; Z89.421 Acquired absence of other right toe(s) | CPT/HCPCS: 97597; 17250; 82962; 99213; A9270; G0277; G0463 ==

== ENCOUNTER → 2024-10-15 | Outpatient (CLI) | payer OTHER, SELFPAY | END | disposition home or self-care (01) | PROVIDERS: Visit Provider Student in an Organized Health Care Education/Training Program | DX: E11.621 Type 2 diabetes mellitus with foot ulcer (principal); L97.511 Non-pressure chronic ulcer of other part of right foot limited to breakdown of skin; T81.89XA Other complications of procedures, not elsewhere classified, initial encounter; E11.40 Type 2 diabetes mellitus with diabetic neuropathy, unspecified; Z79.84 Long term (current) use of oral hypoglycemic drugs; D64.9 Anemia, unspecified; Z89.421 Acquired absence of other right toe(s) | CPT/HCPCS: 17250 ==

== ENCOUNTER → 2024-11-05 | Outpatient (CLI) | payer OTHER, SELFPAY | END | disposition home or self-care (01) | LOC: SWHD 08:33 | PROVIDERS: Visit Provider Student in an Organized Health Care Education/Training Program | DX: E11.621 Type 2 diabetes mellitus with foot ulcer (principal); T81.89XA Other complications of procedures, not elsewhere classified, initial encounter; E11.40 Type 2 diabetes mellitus with diabetic neuropathy, unspecified; Z79.84 Long term (current) use of oral hypoglycemic drugs; D64.9 Anemia, unspecified; Z89.421 Acquired absence of other right toe(s) | CPT/HCPCS: 99212; G0463 ==

== ENCOUNTER → 2024-11-12 | Outpatient (CLI) | payer OTHER, SELFPAY | END | disposition home or self-care (01) | LOC: SWHD 08:47 | PROVIDERS: Visit Provider Student in an Organized Health Care Education/Training Program | DX: E11.621 Type 2 diabetes mellitus with foot ulcer (principal); T81.89XA Other complications of procedures, not elsewhere classified, initial encounter; E11.40 Type 2 diabetes mellitus with diabetic neuropathy, unspecified; Z79.84 Long term (current) use of oral hypoglycemic drugs; D64.9 Anemia, unspecified; Z89.421 Acquired absence of other right toe(s) | CPT/HCPCS: 99212; G0463 ==

== ENCOUNTER → 2024-11-13 | Outpatient (CLI) | payer OTHER, SELFPAY ==
[2024-11-13 10:38] LABS: Basophils # (Auto) 0.1 Thou/mm3 (0.0-0.2); Basophils % (Auto) 1 % (0-2.5); Eosinophils # (Auto) 0.4 Thou/mm3 (0.0-0.5); Eosinophils % (Auto) 7 % (0-10); Hematocrit 34.9 % (41.0-53.0); Hemoglobin 11.8 g/dL (13.5-16.0); Immature Granulocytes % (Auto) 1 % (0-0); Immature Granulocytes Auto 0.03 Thou/mm3 (0.00-0.00); Lymphocytes # (Auto) 1.3 Thou/mm3 (1.0-4.8); Lymphocytes % (Auto) 20 % (10-50); Mean Corpuscular HGB Conc 33.8 g/dl (31.0-37.0); Mean Corpuscular Volume 95 fL (80-100); Monocytes # (Auto) 0.8 Thou/mm3 (0.0-0.8); Monocytes % (Auto) 13 % (0-12); Neutrophils % (Auto) 60 % (37-80); Nucleated Red Blood Cell % 0 /100 WBC (0); Platelet Count 339 Thou/mm3 (140-440); Red Blood Count 3.69 Miln/mm3 (4.50-5.90); White Blood Count 6.6 Thou/mm3 (3.8-10.6)
[2024-11-13 10:59] LABS: Alanine Aminotransferase 10 U/L (10-49); Albumin, Serum 3.8 gm/dL (3.5-5.0); Albumin/Globulin Ratio 1.5 (1.2-2.2); Alkaline Phosphatase 101 U/L (46-116); Anion Gap 4 (7-16); Aspartate Amino Transferase 16 U/L (0-34); BUN/Creatinine Ratio 15 Ratio (12-20); Bilirubin,Total 1.1 mg/dL (0.3-1.2); Blood Urea Nitrogen 9 mg/dL (9-23); C-Reactive Protein 4.2 mg/dL (0.0-0.9); Calcium (Corrected) 9.2 mg/dL (8.5-10.1); Carbon Dioxide 31.1 mMol/L (20.0-31.0); Chloride 102 mMol/L (98-107); Creatinine (Component) 0.6 mg/dL (0.6-1.3); Globulin 2.6 gm/dL (2.3-3.5); Glucose 134 mg/dL (74-106); Osmolality,Calculated 274 (275-295); Potassium 4.1 mMol/L (3.4-5.1); Sed Rate (ESR) 3 mm/hr (0-20); Sodium 137 mMol/L (136-145); Total Protein 6.4 gm/dL (5.7-8.2); eGFR > 60 See Note
== END | disposition home or self-care (01) ==
LOC: COPL 09:16
PROVIDERS: PCP Registered Nurse; Referring Provider Student in an Organized Health Care Education/Training Program; Visit Provider Student in an Organized Health Care Education/Training Program
DX: M86.271 Subacute osteomyelitis, right ankle and foot (principal)
CPT/HCPCS: 36415; 80053; 85025; 85652; 86140

== ENCOUNTER → 2024-11-19 | Outpatient (CLI) | payer OTHER, SELFPAY | END | disposition home or self-care (01) | LOC: SWHD 09:17 | PROVIDERS: Visit Provider Surgery | DX: E11.621 Type 2 diabetes mellitus with foot ulcer (principal); T81.89XA Other complications of procedures, not elsewhere classified, initial encounter; E11.40 Type 2 diabetes mellitus with diabetic neuropathy, unspecified; Z79.84 Long term (current) use of oral hypoglycemic drugs; D64.9 Anemia, unspecified; Z89.421 Acquired absence of other right toe(s) | CPT/HCPCS: 99212; G0463 ==

== ENCOUNTER → 2024-11-28 | Outpatient (CLI) | payer OTHER, SELFPAY ==
--- NOTE | 2024-11-28 08:55 | XR_ITS ---
EXAMINATION: Ankle, right 3 views . Technique: Ankle AP, oblique, lateral 3 views Date and time of exam: November 28, 2024 1022 hours INDICATIONS: Right ankle pain 3 months. 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
--- NOTE | 2024-11-28 08:55 | XR_ITS ---
Examination: Foot, right, 3 views Technique: AP, oblique, lateral views foot, 3 views Date and time of exam: November 28, 2024 1022 hours INDICATIONS: Right foot swelling and pain beginning 3 months ago. FINDINGS: Severe osteopenia Old appearing fractures distal second, third, fourth metatarsals Subtle cortical erosions at the amputated end fifth metatarsal Fracture without union involving the base of the fifth metatarsal IMPRESSION: Suspicious for early osteomyelitis amputated and fifth metatarsal Ununited fracture involving the base of the fifth metatarsal Consider MRI foot without contrast follow-up
== END | disposition home or self-care (01) ==
PROVIDERS: PCP Family Medicine; Referring Provider Podiatrist; Visit Provider Podiatrist
DX: M19.071 Primary osteoarthritis, right ankle and foot (principal); M77.31 Calcaneal spur, right foot; S92.331A Displaced fracture of third metatarsal bone, right foot, initial encounter for closed fracture; X58.XXXA Exposure to other specified factors, initial encounter
CPT/HCPCS: 73610; 73630

== ENCOUNTER → 2024-12-10 | Outpatient (CLI) | payer OTHER, SELFPAY | END | disposition home or self-care (01) | PROVIDERS: PCP Registered Nurse; Referring Provider Registered Nurse; Visit Provider Student in an Organized Health Care Education/Training Program | DX: E11.621 Type 2 diabetes mellitus with foot ulcer (principal); T81.89XA Other complications of procedures, not elsewhere classified, initial encounter; E11.40 Type 2 diabetes mellitus with diabetic neuropathy, unspecified; Z79.84 Long term (current) use of oral hypoglycemic drugs; D64.9 Anemia, unspecified; Z89.421 Acquired absence of other right toe(s); R60.0 Localized edema | CPT/HCPCS: 99212; G0463 ==

== ENCOUNTER → 2024-12-31 | Outpatient (CLI) | payer OTHER, SELFPAY | END | disposition home or self-care (01) | LOC: SWHD 14:12 | PROVIDERS: PCP Registered Nurse; Referring Provider Registered Nurse; Visit Provider Student in an Organized Health Care Education/Training Program | DX: E11.621 Type 2 diabetes mellitus with foot ulcer (principal); T81.89XA Other complications of procedures, not elsewhere classified, initial encounter; E11.40 Type 2 diabetes mellitus with diabetic neuropathy, unspecified; Z79.84 Long term (current) use of oral hypoglycemic drugs; Z89.421 Acquired absence of other right toe(s); R60.0 Localized edema | CPT/HCPCS: 17250; A9270 ==

== ENCOUNTER → 2025-01-14 | Outpatient (CLI) | payer OTHER, SELFPAY | END | disposition home or self-care (01) | LOC: SWHD 14:08 | PROVIDERS: PCP Registered Nurse; Referring Provider Registered Nurse; Visit Provider Student in an Organized Health Care Education/Training Program | DX: E11.621 Type 2 diabetes mellitus with foot ulcer (principal); T81.89XA Other complications of procedures, not elsewhere classified, initial encounter; S91.301A Unspecified open wound, right foot, initial encounter; X58.XXXA Exposure to other specified factors, initial encounter; E11.40 Type 2 diabetes mellitus with diabetic neuropathy, unspecified; Z79.84 Long term (current) use of oral hypoglycemic drugs; Z89.421 Acquired absence of other right toe(s); R60.0 Localized edema | CPT/HCPCS: 99213; A9270; G0463 ==

== ENCOUNTER → 2025-01-15 | Outpatient (CLI) | payer OTHER, SELFPAY ==
[2025-01-15 14:30] LABS: Sed Rate (ESR) 1 mm/hr (0-20)
[2025-01-15 14:43] LABS: Parathyroid Hormone Intact 57.6 pg/ml (18.5-88.0)
[2025-01-15 14:44] LABS: C-Reactive Protein < 0.5 mg/dL (0.0-0.9); Phosphorous 3.6 mg/dL (2.4-5.1)
[2025-01-15 14:47] LABS: Vitamin D 25 Hydroxy Total 19.5 ng/mL (7.3-40.2)
== END | disposition home or self-care (01) ==
PROVIDERS: PCP Family Medicine; Referring Provider Student in an Organized Health Care Education/Training Program; Visit Provider Student in an Organized Health Care Education/Training Program
DX: E11.621 Type 2 diabetes mellitus with foot ulcer (principal)
CPT/HCPCS: 36415; 82306; 83970; 84100; 85652; 86140

== ENCOUNTER → 2025-02-03 | Outpatient (CLI) | payer OTHER, SELFPAY ==
--- NOTE | 2025-02-03 12:14 | XR_ITS ---
Examination: Foot, right, 3 views Technique: AP, oblique, lateral views foot, 3 views Date and time of exam: February 03, 2025 1214 hours INDICATIONS: History amputation fifth ray one month ago FINDINGS: Periosteal new bone along the first metatarsal shaft Severe osteopenia Old fractures distal second third and fourth metatarsals Significant arthritic change intertarsal and tarsometatarsal joints IMPRESSION: Severe osteopenia Periosteal new bone along the first metatarsal shaft which can be seen with chronic osteomyelitis, clinical correlation advised
== END | disposition home or self-care (01) ==
LOC: CDIM 12:06
PROVIDERS: PCP Family Medicine; Referring Provider Podiatrist; Visit Provider Podiatrist
DX: M85.871 Other specified disorders of bone density and structure, right ankle and foot (principal)
CPT/HCPCS: 73630

== ENCOUNTER → 2025-02-04 | Outpatient (CLI) | payer OTHER, SELFPAY | END | disposition home or self-care (01) | LOC: SWHD 13:55 | PROVIDERS: PCP Registered Nurse; Referring Provider Registered Nurse; Visit Provider Student in an Organized Health Care Education/Training Program | DX: E11.621 Type 2 diabetes mellitus with foot ulcer (principal); S91.301A Unspecified open wound, right foot, initial encounter; X58.XXXA Exposure to other specified factors, initial encounter; E11.40 Type 2 diabetes mellitus with diabetic neuropathy, unspecified; Z79.84 Long term (current) use of oral hypoglycemic drugs; Z89.421 Acquired absence of other right toe(s); R60.0 Localized edema | CPT/HCPCS: 99212; G0463 ==

== ENCOUNTER → 2025-02-20 | Outpatient (CLI) | payer OTHER, SELFPAY ==
[2025-02-20 09:56] LABS: Collection Type, Urine Clean Catch; Squamous Epithelial Cell,Urine 0 /hpf (0-5)
[2025-02-20 10:11] LABS: Basophils # (Auto) 0.1 Thou/mm3 (0.0-0.2); Basophils % (Auto) 1 % (0-2.5); Eosinophils # (Auto) 0.5 Thou/mm3 (0.0-0.5); Eosinophils % (Auto) 7 % (0-10); Hematocrit 39.2 % (41.0-53.0); Hemoglobin 13.3 g/dL (13.5-16.0); Immature Granulocytes Auto 0.01 Thou/mm3 (0.00-0.00); Lymphocytes # (Auto) 1.4 Thou/mm3 (1.0-4.8); Lymphocytes % (Auto) 21 % (10-50); Mean Corpuscular HGB Conc 33.9 g/dl (31.0-37.0); Mean Corpuscular Hemoglobin 31.3 pg (25.0-35.0); Mean Corpuscular Volume 92 fL (80-100); Monocytes # (Auto) 0.5 Thou/mm3 (0.0-0.8); Monocytes % (Auto) 8 % (0-12); Neutrophils # (Auto) 4.2 Thou/mm3 (1.8-7.7); Neutrophils % (Auto) 63 % (37-80); Nucleated Red Blood Cell # 0.00 Thou/mm3 (0.00-0.00); Nucleated Red Blood Cell % 0 /100 WBC (0); Platelet Count 193 Thou/mm3 (140-440); RDW Standard Deviation 43.6 fL (35.1-43.9); Red Blood Count 4.25 Miln/mm3 (4.50-5.90); White Blood Count 6.6 Thou/mm3 (3.8-10.6)
[2025-02-20 10:16] LABS: Bilirubin,Urine Negative (Negative); Blood,Urine Negative (Negative); Clarity,Urine Clear (Clear/Hazy); Color,Urine Lt-Yellow (Lt Yel-Yel); Culture Indicated,Urine Not Indicated; Glucose, Urine Negative (Negative); Ketones,Urine Negative (Negative); Leukocyte Esterase,Urine Negative (Negative); Nitrite,Urine Negative (Negative); PH,Urine 6.5 (5.0-7.0); Protein,Urine Negative (Neg - Trace); RBC,Urine 1 /hpf (0-3); Specific Gravity,Urine 1.011 (1.001-1.035); Urobilinogen,Urine Negative mg/dL (0.0-1.0); WBC,Urine 1 /hpf (0-5)
[2025-02-20 10:22] LABS: Glucose Estimated Average 111 mg/dL (80-131); Hemoglobin A1C 5.5 % Hgb (4.8-6.0)
[2025-02-20 10:30] LABS: Creatinine MALB Rnd Ur 56 mg/dL (30-125); Microalbumin, Random Urine < 3 mg/L (0-300)
[2025-02-20 10:31] LABS: Alanine Aminotransferase 12 U/L (10-49); Albumin, Serum 4.3 gm/dL (3.5-5.0); Albumin/Globulin Ratio 1.7 (1.2-2.2); Alkaline Phosphatase 77 U/L (46-116); Anion Gap 8 (7-16); Aspartate Amino Transferase 16 U/L (0-34); BUN/Creatinine Ratio 13 Ratio (12-20); Bilirubin,Total 0.8 mg/dL (0.3-1.2); Blood Urea Nitrogen 9 mg/dL (9-23); Calcium 9.6 mg/dL (8.3-10.6); Calcium (Corrected) 9.6 mg/dL (8.5-10.1); Carbon Dioxide 29.0 mMol/L (20.0-31.0); Cardiac Risk Estimate 2.8 RATIO (4.0-6.7); Chloride 101 mMol/L (98-107); Cholesterol 106 mg/dL (132-200); Creatinine (Component) 0.7 mg/dL (0.6-1.3); Globulin 2.5 gm/dL (2.3-3.5); Glucose 100 mg/dL (74-106); HDL Cholesterol 38 mg/dL (40-60); LDL Cholesterol,Calculated 53 mg/dL (0-130); Osmolality,Calculated 274 (275-295); Potassium 4.8 mMol/L (3.4-5.1); Sodium 138 mMol/L (136-145); Thyroid Stimulating Hormone 1.55 uIU/mL (0.55-4.78); Total Protein 6.8 gm/dL (5.7-8.2); Triglycerides 75 mg/dL (30-150); eGFR > 60 See Note
[2025-02-20 10:35] LABS: Vitamin D 25 Hydroxy Total 21.4 ng/mL (7.3-40.2)
== END | disposition home or self-care (01) ==
LOC: COPL 09:21
PROVIDERS: PCP Family Medicine; Referring Provider Registered Nurse; Visit Provider Registered Nurse
DX: Z00.00 Encounter for general adult medical examination without abnormal findings (principal); E11.65 Type 2 diabetes mellitus with hyperglycemia; I10 Essential (primary) hypertension
CPT/HCPCS: 36415; 80053; 80061; 81001; 82043; 82306; 82570; 83036; 84443; 85025

== ENCOUNTER → 2025-02-27 | Outpatient (CLI) | payer OTHER, SELFPAY ==
--- NOTE | 2025-02-27 09:43 | XR_ITS ---
Examination: Foot, right, 3 views Technique: AP, oblique, lateral views foot, 3 views Date and time of exam: February 27, 2025 1019 hours Comparison February 03, 2025 INDICATIONS: History no trophic arthropathy, amputation fifth ray 9 months ago FINDINGS: Soft tissue vascular calcification. No convincing cortical bone destruction on this study No acute fracture IMPRESSION: No convincing cortical bone destruction on this study
== END | disposition home or self-care (01) ==
PROVIDERS: PCP Registered Nurse; Referring Provider Podiatrist; Visit Provider Podiatrist
DX: M14.671 Charcot's joint, right ankle and foot (principal)
CPT/HCPCS: 73630

== ENCOUNTER → 2025-02-28 | Outpatient (CLI) | payer OTHER, SELFPAY ==
[2025-03-06 06:19] LABS: Fecal Globin Result NOT DETECTED (NOT DETECTED)
== END | disposition home or self-care (01) ==
LOC: SLDO 14:57
PROVIDERS: PCP Family Medicine; Referring Provider Registered Nurse; Visit Provider Registered Nurse
DX: Z12.11 Encounter for screening for malignant neoplasm of colon (principal)
CPT/HCPCS: 82274; G0328

== ENCOUNTER → 2025-02-28 | Outpatient (CLI) | payer OTHER, SELFPAY ==
--- NOTE | 2025-02-28 14:20 | XR_ITS ---
Examination: Bone densitometry Date and time of exam:February 28, 2025 1444 hours INDICATIONS: 60-year-old male with diagnosis age related osteoporosis, family history, mother, hip fracture 75 years ago, family history grandmother with osteoporosis Technique: Lumbar spine and hip total bone mineralization values of an calculated. Peak reference and age match control results have been displayed. Findings: Lumbar spine total bone mineralization is0.869 gm/cm2. This is 2.0 standard deviations below peak reference. This is 1.5 standard deviations below age-matched controls. Hip total bone mineralization is 0.753 gm/cm2 This is 1.9 standard deviations below peak reference. This is 1.4 standard deviations below age-matched controls Impression: There is osteopenia based on lumbar spine measurements. There is osteopenia based on hip measurements
== END | disposition home or self-care (01) ==
LOC: CDIM 13:37
PROVIDERS: Referring Provider Registered Nurse; Visit Provider Registered Nurse
DX: M85.89 Other specified disorders of bone density and structure, multiple sites (principal)
CPT/HCPCS: 77080

== ENCOUNTER → 2025-03-06 | Outpatient (CLI) | payer OTHER, SELFPAY | END | disposition home or self-care (01) | LOC: SWHD 09:12 | PROVIDERS: PCP Registered Nurse; Referring Provider Registered Nurse; Visit Provider Student in an Organized Health Care Education/Training Program | DX: E11.621 Type 2 diabetes mellitus with foot ulcer (principal); S91.301A Unspecified open wound, right foot, initial encounter; X58.XXXA Exposure to other specified factors, initial encounter; E11.40 Type 2 diabetes mellitus with diabetic neuropathy, unspecified; Z79.84 Long term (current) use of oral hypoglycemic drugs; Z89.421 Acquired absence of other right toe(s); R60.0 Localized edema | CPT/HCPCS: 99212; G0463 ==